=== PATIENT | male | born 1930 | race Caucasian/White ===

== ENCOUNTER 2017-11-06 10:55 | Emergency (ER) | payer MEDICAID, MEDICARE, OTHER ==
[2017-11-06 11:15] VITALS: BP 164/63; PULSE 53; RESP 16; TEMP 97; O2SAT 98
[2017-11-06] MEDS ORDERED: Sodium Chloride 0.9% 1,000 ML IV STA (11:23)
[2017-11-06 11:38] LABS: BASO % 0.6 % (0.0-2.0); EOS # 0.2 K/uL (0.0-0.7); EOS % 2.7 % (0.0-4.0); HEMOGLOBIN 13.1 g/dL (12.0-18.0); LYMPH # 2.1 K/uL (1.0-4.3); LYMPH % 35.3 % (20.0-40.0); MEAN CELL VOLUME 94.2 fl (80.0-94.0); MEAN CORPUSCULAR HEMOGLOBIN 31.7 pg (27.0-31.0); MEAN CORPUSCULAR HGB CONC 33.7 g/dL (33.0-37.0); MEAN PLATELET VOLUME 7.8 fl (7.2-11.7); MONO # 0.8 K/uL (0.0-0.8); NEUT # 2.9 K/uL (1.8-7.0); NEUT % 48.4 % (50.0-75.0); NRBC % 0.2 % (0.0-0.0); RBC 4.13 Mil/uL (4.40-5.90); RED CELL DISTRIBUTION WIDTH 13.3 % (11.5-14.5)
[2017-11-06 11:41] LABS: URINE BILIRUBIN NEGATIVE (NEGATIVE); URINE BLOOD NEGATIVE (NEGATIVE); URINE CLARITY CLEAR (Clear); URINE COLOR YELLOW (YELLOW); URINE GLUCOSE (UA) NEG (Normal); URINE LEUKOCYTE ESTERASE NEG Leu/uL (Negative); URINE NITRATE NEGATIVE (NEGATIVE); URINE PROTEIN NEGATIVE (NEGATIVE); URINE UROBILINOGEN 0.2-1.0 mg/dL (0.2-1.0)
[2017-11-06 11:46] LABS: ALB/GLOB RATIO 1.3 (1.0-2.1); ALBUMIN 4.1 g/dL (3.5-5.0); ALT/SGPT 37 U/L (21-72); AST/SGOT 24 U/L (17-59); BLOOD UREA NITROGEN 30 mg/dl (9-20); CALCIUM 9.4 mg/dL (8.4-10.2); GFR AFRICAN-AMERICAN > 60; GFR NON-AFRICAN AMERICAN 52
--- NOTE | 2017-11-06 12:42 | CT ---
PROCEDURE: CT Abdomen and Pelvis without Oral or IV contrast. HISTORY: flank pain/dysuria, hx of renal stone COMPARISON: CT abdomen and pelvis with oral and IV contrast performed 05/08/12 TECHNIQUE: Contiguous axial images of the abdomen and pelvis. No oral or IV contrast administered. Coronal and Sagittal reformats generated and reviewed. Radiation dose: Total exam DLP = 876.89 mGy-cm. This CT exam was performed using one or more of the following dose reduction techniques: Automated exposure control, adjustment of the mA and/or kV according to patient size, and/or use of iterative reconstruction technique. FINDINGS: There is limited evaluation of the solid organs without the administration of IV contrast. LOWER THORAX: No visible consolidation, pleural effusion, or pneumothorax. Dense coronary artery calcifications. LIVER: Unremarkable unenhanced appearance. GALLBLADDER AND BILE DUCTS: Cholelithiasis. PANCREAS: Unremarkable unenhanced appearance. SPLEEN: Unremarkable unenhanced appearance. ADRENALS: Unremarkable unenhanced appearance. KIDNEYS AND URETERS: No hydronephrosis or obstructing renal calculus. Punctate nonobstructing right renal calculus. Too small to characterize bilateral renal hypodensities. BLADDER: Thick-walled under distended urinary bladder. Punctate calcification within the urinary bladder; is unclear if this calcification resides within the bladder wall or represents a recently passed calculus. REPRODUCTIVE: The prostate gland measures approximately 6.0 x 6.4 cm. APPENDIX: The appendix appears within normal limits of caliber. No secondary signs of acute appendicitis. BOWEL: The stomach is nondistended. Lack of oral contrast limits evaluation for bowel pathology. The bowel loops appear within normal limits of caliber without evidence of intestinal obstruction. Diverticulosis without CT evidence of acute diverticulitis. PERITONEUM: No significant free fluid. No definite free air. LYMPH NODES: No bulky lymphadenopathy identified. VASCULATURE: No aortic aneurysm. Atherosclerotic calcifications. BONES: Degenerative changes. OTHER FINDINGS: Fat containing left inguinal hernia. Vessels and fluid within a right inguinal hernia. IMPRESSION: Cholelithiasis. Punctate calcification within the urinary bladder; is unclear if this calcification resides within the bladder wall or represents a recently passed calculus. Thick-walled urinary bladder may be exaggerated by under distension. Recommend correlation with urinalysis. Punctate nonobstructing right renal calculus. No hydronephrosis. Too small to characterize bilateral renal hypodensities. Markedly enlarged prostate gland. Recommend correlation with PSA. Diverticulosis without CT evidence acute diverticulitis. Fat containing left inguinal hernia. Vessels and fluid within a right inguinal hernia. Additional incidental findings as above.
--- NOTE | 2017-11-06 13:17 | ED PDOC ---
HPI: Back Time Seen by Provider: 11/06/17 11:24 Chief Complaint (Nursing): Back Pain Chief Complaint (Provider): back pain History Per: Patient Additional Complaint(s): 87yoM in ED for eval of back pain radiating down b/l LE since yesterday. Pt state he noted a stone pass yesterday with some bleeding. today, pt admist to continued pain , urinary frequency and urgency. Pt denies hemautira, nausea or vomiting. denies abd pain denies urethral drainage. Past Medical History Reviewed: Historical Data, Nursing Documentation, Vital Signs Vital Signs: Last Vital Signs Temp 97.0 F L 11/06/17 11:10 Pulse 53 L 11/06/17 11:10 Resp 16 11/06/17 11:10 BP 164/63 H 11/06/17 11:10 Pulse Ox 98 11/06/17 11:10 - Medical History PMH: Benign Prostatic Hyperplasia, CAD (angioplasty), Diabetes, HTN Denies: Chronic Kidney Disease - Family History Family History: States: Unknown Family Hx - Immunization History Hx Tetanus Toxoid Vaccination: Yes Hx Influenza Vaccination: Yes Hx Pneumococcal Vaccination: Yes - Home Medications Home Medications: Ambulatory Orders Medication Instructions Recorded Metformin HCl [Metformin] 1,000 mg PO BID 07/07/15 Metoprolol Succinate 50 mg PO DAILY 07/07/15 Aspirin [Ecotrin] 81 mg PO DAILY #0 tabec 11/07/15 Fenofibrate [Tricor] 0 mg PO DAILY #0 tab 11/07/15 Gabapentin [Neurontin] 100 mg PO HS #0 cap 11/07/15 Losartan [Cozaar] 50 mg PO DAILY #0 tab 11/07/15 Oxycodone HCl/Acetaminophen 1 tab PO Q4 #4 tab 11/07/15 [Percocet 5-325 mg Tablet] Naproxen [Naprosyn] 1 tab PO BID 11/06/17 SITagliptin [Januvia] 1 tab PO DAILY 11/06/17 Tramadol HCl [Ultram] 50 mg PO Q6 #15 tab 11/06/17 - Allergies Allergies/Adverse Reactions: Allergies Allergy/AdvReac Type Severity Reaction Status Date / Time No Known Allergies Allergy Verified 11/06/17 11:15 Review of Systems ROS Statement: Except As Marked, All Systems Reviewed And Found Negative Constitutional: Negative for: Fever, Chills Genitourinary Male: Positive for: Dysuria, Frequency. Negative for: Incontinence, Hematuria, Penile Discharge, Scrotal Pain Physical Exam - Reviewed Nursing Documentation Reviewed: Yes Vital Signs Reviewed: Yes - Physical Exam Appears: Positive for: Well, Non-toxic, No Acute Distress Head Exam: Positive for: NORMOCEPHALIC Skin: Positive for: Normal Color, Warm, DRY Cardiovascular/Chest: Positive for: Regular Rate, Rhythm Respiratory: Positive for: CNT, Normal Breath Sounds Gastrointestinal/Abdominal: Positive for: Normal Exam, Bowel Sounds, Soft. Negative for: Tenderness Back: Positive for: L CVA Tenderness, R CVA Tenderness Extremity: Positive for: Normal ROM Neurologic/Psych: Positive for: Alert, Oriented - Laboratory Results Result Diagrams: 11/06/17 11:32 11/06/17 11:32 - ECG O2 Sat by Pulse Oximetry: 98 - Progress ED Course And Treament: Orders Category Date Time Status ABD & PELVIS W/O PO OR IV CONT [CT] Stat CT 11/06/17 11:23 Completed COMP METABOLIC PANEL Stat Chem 11/06/17 11:32 Completed CBC (WITH DIFFERENTIAL) Stat CORRINE 11/06/17 11:32 Completed Ketorolac [Toradol] Med 11/06/17 11:32 Discontinued 15 mg .ROUTE .STK-MED ONE Ketorolac [Toradol] Med 11/06/17 11:19 Discontinued 15 mg IVP STAT STA Sodium Chloride 0.9% 1,000 ml Med 11/06/17 11:23 Discontinued IV 1,000 mls/hr URINALYSIS Stat URINALYSIS 11/06/17 11:24 Completed Re-evaluation Time: 13:18 Condition: Improved Medical Decision Making Medical Decision Making: PT feels much improved, will be d/c with dx of renal stone, diverticiolosis, cholelithaisis and enlarged prostate. Pt aware of enlarged prostate and gets PSA done rountinely Pt denies upper abd pain or diarrhea. will be d.c with flomax, ultram, cipro.f.u wiht pmd. Disposition - Clinical Impression Clinical Impression: Renal stone - Patient ED Disposition Is Patient to be Admitted: No Counseled Patient/Family Regarding: Studies Performed, Diagnosis, Need For Followup, Rx Given - Disposition Referrals: [facility] [Outside] Disposition: Routine/Home Disposition Time: 13:20 Condition: IMPROVED Prescriptions: Tramadol HCl [Ultram] 50 mg PO Q6 #15 tab Instructions: Kidney Stones (ED), Renal Colic (ED) Print Language: OCCITAN
== END 2017-11-06 13:40 | disposition home or self-care (01) ==
LOC: H.ER 10:55
DX: N20.0 Calculus of kidney (principal); E11.9 Type 2 diabetes mellitus without complications; I10 Essential (primary) hypertension; I25.10 Atherosclerotic heart disease of native coronary artery without angina pectoris; Z79.82 Long term (current) use of aspirin; N40.0 Benign prostatic hyperplasia without lower urinary tract symptoms; Z79.84 Long term (current) use of oral hypoglycemic drugs
CPT/HCPCS: 74176; 80053; 81003; 85025; 96374; 99283; J1885; J7040

== ENCOUNTER 2017-11-20 10:14 | Emergency (ER) | payer OTHER ==
[2017-11-20 10:33] VITALS: BP 165/73; PULSE 63; RESP 16; TEMP 97.9; O2SAT 98
[2017-11-20 11:49] LABS: BASO % 0.4 % (0.0-2.0); EOS # 0.2 K/uL (0.0-0.7); EOS % 2.9 % (0.0-4.0); HEMOGLOBIN 13.6 g/dL (12.0-18.0); LYMPH # 2.1 K/uL (1.0-4.3); MEAN CELL VOLUME 93.3 fl (80.0-94.0); MEAN CORPUSCULAR HEMOGLOBIN 31.7 pg (27.0-31.0); MEAN PLATELET VOLUME 7.9 fl (7.2-11.7); MONO # 0.8 K/uL (0.0-0.8); MONO % 12.6 % (0.0-10.0); NEUT % 49.1 % (50.0-75.0); NRBC % 0.1 % (0.0-0.0); RBC 4.29 Mil/uL (4.40-5.90); WHITE BLOOD COUNT 6.1 K/uL (4.8-10.8)
[2017-11-20 12:05] LABS: ALB/GLOB RATIO 1.2 (1.0-2.1); ALBUMIN 4.2 g/dL (3.5-5.0); ALT/SGPT 34 U/L (21-72); AST/SGOT 26 U/L (17-59); BLOOD UREA NITROGEN 20 mg/dl (9-20); GFR AFRICAN-AMERICAN > 60; GFR NON-AFRICAN AMERICAN > 60
--- NOTE | 2017-11-20 12:15 | ED PDOC ---
Lower Extremity Pain/Injury Time Seen by Provider: 11/20/17 11:05 Chief Complaint (Nursing): Lower Extremity Problem/Injury Chief Complaint (Provider): Lower extremity problem History Per: Patient, Family (daughter) History/Exam Limitations: no limitations Onset/Duration Of Symptoms: Days (weeks) Current Symptoms Are (Timing): Still Present Additional Complaint(s): Ian Aguero is an 87 year old male, with a past medical history of diabetes, prostate problems, and recent kidney stones, who was brought to the emergency department by daughter for generalized weakness and an episode of pre-syncope this morning where he fell to his knees. Patient reports ongoing low back pain and now feels generalized weakness on both lower extremities. Daughter states she saw an urologist at [facility] after kidney stone and had prostate evaluated but she is unaware of results. Patient does have soft stools but daughter attributes it to diabetes medication. Daughter also reports that he has been complaining of anxiety and depression, she has found him crying in bed. She denies weight loss, fever, vomiting, chest pain, shortness of breath or cough. No further medical complaints. PMD: Dr. Clark Past Medical History Reviewed: Historical Data, Nursing Documentation, Vital Signs Vital Signs: Last Vital Signs Temp 97.9 F 11/20/17 10:26 Pulse 63 11/20/17 10:26 Resp 16 11/20/17 10:26 BP 165/73 H 11/20/17 10:26 Pulse Ox 98 11/20/17 10:26 - Medical History PMH: Benign Prostatic Hyperplasia, CAD (angioplasty), Diabetes, HTN Denies: Chronic Kidney Disease - Surgical History Surgical History: No Surg Hx - Family History Family History: States: Unknown Family Hx - Living Arrangements Living Arrangements: With Family (daughter) - Social History Current smoker - smoking cessation education provided: No Alcohol: None Drugs: Denies - Immunization History Hx Tetanus Toxoid Vaccination: Yes Hx Influenza Vaccination: Yes Hx Pneumococcal Vaccination: Yes - Home Medications Home Medications: Ambulatory Orders Medication Instructions Recorded Metformin HCl [Metformin] 1,000 mg PO BID 07/07/15 Metoprolol Succinate 50 mg PO DAILY 07/07/15 Aspirin [Ecotrin] 81 mg PO DAILY #0 tabec 11/07/15 Fenofibrate [Tricor] 0 mg PO DAILY #0 tab 11/07/15 Gabapentin [Neurontin] 100 mg PO HS #0 cap 11/07/15 Losartan [Cozaar] 50 mg PO DAILY #0 tab 11/07/15 Oxycodone HCl/Acetaminophen 1 tab PO Q4 #4 tab 11/07/15 [Percocet 5-325 mg Tablet] Ketorolac Tromethamine [Toradol] 10 mg PO TID #20 cap 11/06/17 Naproxen [Naprosyn] 1 tab PO BID 11/06/17 SITagliptin [Januvia] 1 tab PO DAILY 11/06/17 Tamsulosin HCl [Flomax] 0.4 mg PO DAILY #14 cap.er.24h 11/06/17 ALPRAZolam HALF TABLET [Xanax HALF 0.125 mg PO HS PRN #4 tab 11/20/17 TABLET] Walker [Rolling Walker] 1 dev XX PRN PRN #1 dev 11/20/17 - Allergies Allergies/Adverse Reactions: Allergies Allergy/AdvReac Type Severity Reaction Status Date / Time No Known Allergies Allergy Verified 11/06/17 11:15 Review of Systems ROS Statement: Except As Marked, All Systems Reviewed And Found Negative Constitutional: Positive for: Weakness (generalized), Other (fatigue). Negative for: Fever, Weight loss Cardiovascular: Negative for: Chest Pain Respiratory: Negative for: Cough, Shortness of Breath Gastrointestinal: Negative for: Vomiting Musculoskeletal: Positive for: Back Pain Physical Exam - Reviewed Nursing Documentation Reviewed: Yes Vital Signs Reviewed: Yes - Physical Exam Appears: Negative for: Well (elderly appearing) Head Exam: Positive for: ATRAUMATIC, NORMAL INSPECTION, NORMOCEPHALIC Skin: Positive for: Normal Color, Warm, Dry Eye Exam: Positive for: Normal appearance, EOMI, PERRL Neck: Positive for: Normal, Painless ROM, Supple Cardiovascular/Chest: Positive for: Regular Rate, Rhythm. Negative for: Murmur Respiratory: Positive for: Normal Breath Sounds. Negative for: Respiratory Distress Gastrointestinal/Abdominal: Positive for: Normal Exam, Soft. Negative for: Tenderness, Guarding, Rebound Back: Positive for: Normal Inspection. Negative for: L CVA Tenderness, R CVA Tenderness Extremity: Positive for: Normal ROM, Other (4/5 strength bilateral lower extremities. 1+ patella reflex bilaterally). Negative for: Deformity, Swelling Neurologic/Psych: Positive for: Alert, Oriented (x3), Mood/Affect (flat) - Laboratory Results Result Diagrams: 11/20/17 11:42 11/20/17 11:42 - ECG ECG Rhythm: Positive for: Sinus Rhythm. Negative for: ST/T Changes Rate: 63 O2 Sat by Pulse Oximetry: 98 Medical Decision Making Medical Decision Making: Initial Impression: Initial Plan: --EKG --Comp Metabolic Panel --PSA [Prostate Specific Antigen] --CBC w/ differential --Chest portable [RAD] --Lumbar spine complete [RAD] --Urinalysis --reevaluation 12:05 --Blood work revealed only mild hyperglycemia. PSA sent and pending. --Waiting on crisis evaluation for impression of anxiety 12:41 Chest X-Ray FINDINGS: LUNGS: No active pulmonary disease. PLEURA: No significant pleural effusion identified. No pneumothorax apparent. CARDIOVASCULAR: Normal. OSSEOUS STRUCTURES: No significant abnormalities. VISUALIZED UPPER ABDOMEN: Normal. OTHER FINDINGS: None. IMPRESSION: No interval acute cardiopulmonary disease appreciated. 12:49 Lumbar Spine X-Ray FINDINGS: BONES: No apparent acute fracture or spondylolisthesis is identified. No destructive bony lesion is evident. Review body heights are stable. Intervertebral disc spaces are also within normal limits and incidental note is made of abdominal aortic atherosclerosis. Diffuse osteopenia suggests osteoporosis. Limited multilevel lumbar spondylosis identified. DISC SPACES: Normal. OTHER FINDINGS: None. IMPRESSION: Mild multilevel degenerative disease are changes are identified given apparent spondylosis, though limited, however, there is no interval fracture or spondylolisthesis identified. Further characterization can provided by MRI if clinically warranted. Crisis eval performed- daughter does not want pt admitted. Requesting xanax for anxiety at home, explained fall risk taking this medication , daughter aware and says the anxiety is disruptive and pt not sleeping, will Rx low dose #4pills and followup psych/PMD for further mgmt. B12 level added on, to followup as outpatient by PMD, not emergent condition. patient ambulating in ED, will Rx walker and may need outpt PT eval via PMD. Scribe Attestation: Documented by Bill Montano, acting as a scribe for Prasanna Galarza MD Provider Scribe Attestation: All medical record entries made by the Scribe were at my direction and personally dictated by me. I have reviewed the chart and agree that the record accurately reflects my personal performance of the history, physical exam, medical decision making, and the department course for this patient. I have also personally directed, reviewed, and agree with the discharge instructions and disposition. Disposition - Clinical Impression Clinical Impression: Anxiety, Generalized weakness, Back pain - Patient ED Disposition Is Patient to be Admitted: No - Disposition Disposition: Routine/Home Disposition Time: 13:30 Condition: STABLE Additional Instructions: See psychiatrist and primary doctor as directed. Use extreme caution taking xanax as it could cause drowsiness and falls. Return to ER for any worse or new symptoms Prescriptions: ALPRAZolam HALF TABLET [Xanax HALF TABLET] 0.125 mg PO HS PRN #4 tab PRN Reason: Anxiety Walker [Rolling Walker] 1 dev XX PRN PRN #1 dev PRN Reason: Other Instructions: Weakness (ED), Anxiety (ED) Forms: [employer] (Kinyarwanda) Print Language: MACEDONIAN
--- NOTE | 2017-11-20 12:43 | RAD ---
HISTORY: weakness COMPARISON: Chest radiographs 11/06/2015. TECHNIQUE: Chest PA and lateral FINDINGS: LUNGS: No active pulmonary disease. PLEURA: No significant pleural effusion identified. No pneumothorax apparent. CARDIOVASCULAR: Normal. OSSEOUS STRUCTURES: No significant abnormalities. VISUALIZED UPPER ABDOMEN: Normal. OTHER FINDINGS: None. IMPRESSION: No interval acute cardiopulmonary disease appreciated.
--- NOTE | 2017-11-20 12:50 | RAD ---
PROCEDURE: Radiographs of the Lumbar Spine. HISTORY: LE weakness back pain COMPARISON: Abdomen pelvis CT with contrast 05/08/2012 as well as unenhanced CT abdomen pelvis 11/06/2017. FINDINGS: BONES: No apparent acute fracture or spondylolisthesis is identified. No destructive bony lesion is evident. Review body heights are stable. Intervertebral disc spaces are also within normal limits and incidental note is made of abdominal aortic atherosclerosis. Diffuse osteopenia suggests osteoporosis. Limited multilevel lumbar spondylosis identified. DISC SPACES: Normal. OTHER FINDINGS: None. IMPRESSION: Mild multilevel degenerative disease are changes are identified given apparent spondylosis, though limited, however, there is no interval fracture or spondylolisthesis identified. Further characterization can provided by MRI if clinically warranted.
[2017-11-20 14:14] LABS: URINE BILIRUBIN NEGATIVE (NEGATIVE); URINE BLOOD NEGATIVE (NEGATIVE); URINE CLARITY SLIGHTY-CLOUDY (Clear); URINE COLOR YELLOW (YELLOW); URINE GLUCOSE (UA) >=500 mg/dL (Normal); URINE LEUKOCYTE ESTERASE NEG Leu/uL (Negative); URINE NITRATE NEGATIVE (NEGATIVE); URINE PROTEIN NEGATIVE (NEGATIVE); URINE UROBILINOGEN 0.2-1.0 mg/dL (0.2-1.0)
--- NOTE | 2017-11-20 16:43 | CARD ---
APPROVED REPORT EKG Measurement Heart [id number] <Conclusion> Normal sinus rhythm Normal ECG
== END 2017-11-20 13:50 | disposition home or self-care (01) ==
LOC: H.ER 10:14
DX: M62.81 Muscle weakness (generalized) (principal); F41.9 Anxiety disorder, unspecified; E11.65 Type 2 diabetes mellitus with hyperglycemia; I10 Essential (primary) hypertension; Z79.84 Long term (current) use of oral hypoglycemic drugs; I25.10 Atherosclerotic heart disease of native coronary artery without angina pectoris

== ENCOUNTER 2017-12-19 10:54 | Emergency (ER) | payer OTHER ==
[2017-12-19 11:00] VITALS: BP 167/78; PULSE 77; RESP 19; TEMP 97.9; O2SAT 96
--- NOTE | 2017-12-19 13:39 | ED PDOC ---
Lower Extremity Pain/Injury Time Seen by Provider: 12/19/17 12:00 Chief Complaint (Nursing): Back Pain Chief Complaint (Provider): b/l leg pain History Per: Patient History/Exam Limitations: no limitations Onset/Duration Of Symptoms: Days (x1 month) Current Symptoms Are (Timing): Still Present Additional Complaint(s): Ian Aguero is an 87 year old male, with a past medical history HTN, arthritis and diabetes, who presents to the emergency department complaining of a worsening b/l leg pain onset for x1 month. Patient states the pain goes from the thighs down the legs, worst in the knees. He was diagnosed with arthritis but has not seen any doctor regarding complaints. Patient does use cane and a walker at home. Patient is currently taking Naproxen. He denies any fever, back pain, numbness or weakness. No further medical complaints. PMD: None provided. Past Medical History Reviewed: Historical Data, Nursing Documentation, Vital Signs Vital Signs: Last Vital Signs Temp 97.9 F 12/19/17 10:57 Pulse 77 12/19/17 10:57 Resp 19 12/19/17 10:57 BP 167/78 H 12/19/17 10:57 Pulse Ox 96 12/19/17 10:57 - Medical History PMH: Arthritis, Benign Prostatic Hyperplasia, CAD (angioplasty), Diabetes, HTN Denies: Chronic Kidney Disease - Surgical History Surgical History: No Surg Hx - Family History Family History: States: Unknown Family Hx - Social History Current smoker - smoking cessation education provided: No Alcohol: None Drugs: Denies - Immunization History Hx Tetanus Toxoid Vaccination: Yes Hx Influenza Vaccination: Yes Hx Pneumococcal Vaccination: Yes - Home Medications Home Medications: Ambulatory Orders Medication Instructions Recorded Metformin HCl [Metformin] 1,000 mg PO BID 07/07/15 RX: Metoprolol Succinate 50 mg PO DAILY 07/07/15 Fenofibrate [Tricor] 0 mg PO DAILY #0 tab 11/07/15 Losartan [Cozaar] 50 mg PO DAILY #0 tab 11/07/15 RX: Aspirin [Ecotrin] 81 mg PO DAILY #0 tabec 11/07/15 RX: Gabapentin [Neurontin] 100 mg PO HS #0 cap 11/07/15 RX: Oxycodone HCl/Acetaminophen 1 tab PO Q4 #4 tab 11/07/15 [Percocet 5-325 mg Tablet] Ketorolac Tromethamine [Toradol] 10 mg PO TID #20 cap 11/06/17 RX: Naproxen [Naprosyn] 1 tab PO BID 11/06/17 SITagliptin [Januvia] 1 tab PO DAILY 11/06/17 Tamsulosin HCl [Flomax] 0.4 mg PO DAILY #14 cap.er.24h 11/06/17 ALPRAZolam HALF TABLET [Xanax HALF 0.125 mg PO HS PRN #4 tab 11/20/17 TABLET] RX: Walker [Rolling Walker] 1 dev XX PRN PRN #1 dev 11/20/17 RX: Naproxen 250 mg PO BID #20 tablet 12/19/17 oxyCODONE/Acetaminophen [Percocet 1 ea PO Q6 PRN #15 tab 12/19/17 5/325 mg Tab] - Allergies Allergies/Adverse Reactions: Allergies Allergy/AdvReac Type Severity Reaction Status Date / Time No Known Allergies Allergy Verified 12/19/17 10:57 Review of Systems ROS Statement: Except As Marked, All Systems Reviewed And Found Negative Constitutional: Negative for: Fever Musculoskeletal: Positive for: Leg Pain (b/l ). Negative for: Back Pain Neurological: Negative for: Weakness, Numbness Physical Exam - Reviewed Nursing Documentation Reviewed: Yes Vital Signs Reviewed: Yes - Physical Exam Appears: Positive for: Non-toxic Head Exam: Positive for: ATRAUMATIC, NORMAL INSPECTION, NORMOCEPHALIC Skin: Positive for: Normal Color, Warm, Dry Eye Exam: Positive for: Normal appearance Neck: Positive for: Painless ROM Extremity: Positive for: Normal ROM (b/l lower extremities). Negative for: Tenderness (b/l lower extremities), Pedal Edema, Deformity (b/l lower extremities), Swelling (b/l lower extremities) Neurologic/Psych: Positive for: Alert, Oriented, Gait (steady) - ECG O2 Sat by Pulse Oximetry: 96 (RA) Pulse Ox Interpretation: Normal Medical Decision Making Medical Decision Making: Initial Impression: differential includes arthritis. Initial Plan: --Will give prescription for Percocet and advised to follow up with PMD, and will give referral for orthopedist. Physical therapy referral done by PMD. Scribe Attestation: Documented by Bill Montano, acting as a scribe for Mariia Welch MD Provider Scribe Attestation: All medical record entries made by the Scribe were at my direction and personally dictated by me. I have reviewed the chart and agree that the record accurately reflects my personal performance of the history, physical exam, medical decision making, and the department course for this patient. I have also personally directed, reviewed, and agree with the discharge instructions and disposition. Disposition - Clinical Impression Clinical Impression: Arthralgia, Leg pain, bilateral - Disposition Referrals: Chacho Melo MD [Medical Doctor] - Condition: GOOD Additional Instructions: Follow up with your PCP in 2-3 days. Prescriptions: RX: Naproxen 250 mg PO BID #20 tablet oxyCODONE/Acetaminophen [Percocet 5/325 mg Tab] 1 ea PO Q6 PRN #15 tab PRN Reason: Pain, Severe (8-10) Instructions: Arthritis (ED)
== END 2017-12-19 14:08 | disposition home or self-care (01) ==
LOC: H.ER 10:54
DX: M79.606 Pain in leg, unspecified (principal); E11.9 Type 2 diabetes mellitus without complications; Z79.84 Long term (current) use of oral hypoglycemic drugs

== ENCOUNTER 2018-02-15 10:34 | Emergency (ER) | payer MEDICAID, OTHER ==
[2018-02-15 10:42] VITALS: BMI 26.6
[2018-02-15 11:44] LABS: BASO % 0.5 % (0.0-2.0); EOS # 0.1 K/uL (0.0-0.7); EOS % 2.3 % (0.0-4.0); HEMOGLOBIN 13.5 g/dL (12.0-18.0); LYMPH # 1.6 K/uL (1.0-4.3); LYMPH % 30.7 % (20.0-40.0); MEAN CELL VOLUME 94.4 fl (80.0-94.0); MEAN CORPUSCULAR HEMOGLOBIN 31.7 pg (27.0-31.0); MEAN CORPUSCULAR HGB CONC 33.6 g/dL (33.0-37.0); MEAN PLATELET VOLUME 8.1 fl (7.2-11.7); MONO # 0.7 K/uL (0.0-0.8); NEUT # 2.7 K/uL (1.8-7.0); NEUT % 53.5 % (50.0-75.0); NRBC % 0.1 % (0.0-0.0); RBC 4.24 Mil/uL (4.40-5.90); RED CELL DISTRIBUTION WIDTH 13.1 % (11.5-14.5); WHITE BLOOD COUNT 5.1 K/uL (4.8-10.8)
--- NOTE | 2018-02-15 11:57 | ED PDOC ---
HPI: Trauma/Fall - HPI Time Seen by Provider: 02/15/18 11:08 Chief Complaint (Nursing): Trauma Chief Complaint (Provider): fall, back pain History Per: Patient History/Exam Limitations: no limitations Injury Occurred (Timing): Days Ago: (1) Severity: Moderate Associated Symptoms: Dizziness Additional Complaint(s): 87yo male states he lost his balance yesterday afternoon, fell injuring his lower back. Was helped to his feet by family member, today back pain has worsened w some radiation to left leg. Also notes he hit his head. Takes aspirin daily. Denies vomiting, focal weakness, change vision/speech or sensation. Past Medical History Reviewed: Historical Data, Nursing Documentation, Vital Signs Vital Signs: Last Vital Signs Temp 97.6 F 02/15/18 10:41 Pulse 93 H 02/15/18 10:41 Resp 17 02/15/18 10:41 BP 164/75 H 02/15/18 10:41 Pulse Ox 97 02/15/18 10:41 - Medical History PMH: Arthritis, Benign Prostatic Hyperplasia, CAD (angioplasty), Diabetes, HTN Denies: Chronic Kidney Disease - Family History Family History: States: Unknown Family Hx - Living Arrangements Living Arrangements: With Family - Social History Current smoker - smoking cessation education provided: No - Immunization History Hx Tetanus Toxoid Vaccination: Yes Hx Influenza Vaccination: Yes Hx Pneumococcal Vaccination: Yes - Home Medications Home Medications: Ambulatory Orders Medication Instructions Recorded Metformin HCl [Metformin] 1,000 mg PO BID 07/07/15 Metoprolol Succinate 50 mg PO DAILY 07/07/15 Aspirin [Ecotrin] 81 mg PO DAILY #0 tabec 11/07/15 Fenofibrate [Tricor] 0 mg PO DAILY #0 tab 11/07/15 Gabapentin [Neurontin] 100 mg PO HS #0 cap 11/07/15 Losartan [Cozaar] 50 mg PO DAILY #0 tab 11/07/15 Oxycodone HCl/Acetaminophen 1 tab PO Q4 #4 tab 11/07/15 [Percocet 5-325 mg Tablet] Ketorolac Tromethamine [Toradol] 10 mg PO TID #20 cap 11/06/17 Naproxen [Naprosyn] 1 tab PO BID 11/06/17 SITagliptin [Januvia] 1 tab PO DAILY 11/06/17 Tamsulosin HCl [Flomax] 0.4 mg PO DAILY #14 cap.er.24h 11/06/17 ALPRAZolam HALF TABLET [Xanax HALF 0.125 mg PO HS PRN #4 tab 11/20/17 TABLET] Walker [Rolling Walker] 1 dev XX PRN PRN #1 dev 11/20/17 Naproxen 250 mg PO BID #20 tablet 12/19/17 oxyCODONE/Acetaminophen [Percocet 1 ea PO Q6 PRN #15 tab 12/19/17 5/325 mg Tab] Naproxen [Naprosyn] 500 mg PO BID PRN #14 tablet 02/15/18 - Allergies Allergies/Adverse Reactions: Allergies Allergy/AdvReac Type Severity Reaction Status Date / Time No Known Allergies Allergy Verified 12/19/17 10:57 Review of Systems Constitutional: Negative for: Fever, Chills Cardiovascular: Negative for: Chest Pain, Palpitations Respiratory: Negative for: Cough, Shortness of Breath Gastrointestinal: Negative for: Nausea, Abdominal Pain Genitourinary Male: Negative for: Dysuria Musculoskeletal: Positive for: Back Pain, Leg Pain. Negative for: Neck Pain, Arm Pain, Hand Pain, Foot Pain Skin: Negative for: Rash, Lesions, Jaundice Neurological: Positive for: Headache, Dizziness. Negative for: Weakness, Numbness, Incoordination, Change in Speech Physical Exam - Reviewed Nursing Documentation Reviewed: Yes Vital Signs Reviewed: Yes - Physical Exam Appears: Positive for: Well, Non-toxic, No Acute Distress Head Exam: Positive for: ATRAUMATIC, NORMAL INSPECTION, NORMOCEPHALIC Skin: Positive for: Normal Color, Warm, DRY Eye Exam: Positive for: EOMI, Normal appearance, PERRL ENT: Positive for: Normal ENT Inspection Neck: Positive for: Normal, Painless ROM Cardiovascular/Chest: Positive for: Regular Rate, Rhythm Respiratory: Positive for: CNT, Normal Breath Sounds Gastrointestinal/Abdominal: Positive for: Normal Exam, Soft Back: Positive for: Vertebral Tenderness, Decreased ROM (lower back), Muscle Spasm Extremity: Positive for: Normal ROM, Other (FROM hips b/l). Negative for: Deformity Neurologic/Psych: Positive for: Alert, Oriented - Laboratory Results Result Diagrams: 02/15/18 11:30 02/15/18 11:30 - ECG O2 Sat by Pulse Oximetry: 97 Medical Decision Making Medical Decision Making: workup for fall in elderly patient initiated labs, CT imaging of brain/CSpine/LSpine, pelvic XRay and pain medicine ordered XR and CT imaging performed r/o fracture Accession No. : [id number] Patient Name / ID : ESTEBAN SOLANO / [id number] Exam Date : 02/15/2018 13:08:46 ( Approved ) Study Comment : Sex / Age : M / 87Y Creator : Carl Hernandez MD Dictator : Carl Hernandez MD State Trooper : Campus Administrator : Carl Hernandez MD Approver2 : Report Date : 02/15/2018 14:26:56 My Comment : PROCEDURE: Radiographs of the pelvis. HISTORY: fall COMPARISON: None. FINDINGS: BONES: Pelvic Bones: Unremarkable. Hips: Degenerative changes which are moderate and symmetrical. JOINTS: Sacroiliac Joints: Unremarkable. Pubic Symphysis: Unremarkable. OTHER FINDINGS: None. IMPRESSION: No acute findings related to/accounting for the clinical presentation. Dictator : Samuel Ramirez MD State Trooper : Campus Administrator : Samuel Ramirez MD Approver2 : Report Date : 02/15/2018 14:11:34 My Comment : PROCEDURE: CT Lumbar Spine without contrast HISTORY: fall back pain COMPARISON: None. TECHNIQUE: Axial computed tomography images were obtained of the lumbar spine without the use of intravenous contrast. Coronal and sagittal reformatted images were created and reviewed. Radiation dose: Total exam DLP = 749.36 mGy-cm. This CT exam was performed using one or more of the following dose reduction techniques: Automated exposure control, adjustment of the mA and/or kV according to patient size, and/or use of iterative reconstruction technique. FINDINGS: VERTEBRAE: The vertebral bodies are maintained in height. Questionable old fracture of the right and left transverse process of L1, versus developmental anomaly. No surrounding soft tissue hemorrhage. Unlikely acute fractures. The remaining transverse processes and posterior elements are intact. . DISCS/SPINAL CANAL/NEURAL FORAMINA: L1-2: Disc space maintained in height. No disc bulge or herniation. No spinal or foraminal stenosis. L2-3: Disc space maintained in height. No bulge or herniation. No spinal or foraminal stenosis. L3-4: Diffuse disc bulge. Bilateral degenerative facet arthrosis with hypertrophy. Severe central spinal stenosis. Moderate bilateral neural foraminal stenosis. L4-5: Severe central spinal stenosis. Bilateral degenerative facet arthropathy. Diffuse disc bulge. Moderate bilateral neural foraminal stenosis. L5-S1: Diffuse disc bulge. No focal herniation. Severe left and moderate right neural foraminal stenosis. Moderate central spinal stenosis. PARASPINAL SOFT TISSUES: Unremarkable. OTHER FINDINGS: None. IMPRESSION: Possible old fractures of the right and left L1 transverse processes, versus developmental anomaly. No evidence of acute fracture. Multilevel disc bulge with severe spinal stenosis L3-4 and L4-5 and moderate spinal stenosis L5-S1. Multilevel moderate neural foraminal stenosis. Accession No. : [id number] Patient Name / ID : ESTEBAN SOLANO / [id number] Exam Date : 02/15/2018 11:44:14 ( Approved ) Study Comment : Sex / Age : M / 87Y Creator : Samuel Ramirez MD Dictator : Samuel Ramirez MD State Trooper : Campus Administrator : Samuel Ramirez MD Approver2 : Report Date : 02/15/2018 12:21:10 My Comment : PROCEDURE: CT HEAD WITHOUT CONTRAST. HISTORY: r/o ICH COMPARISON: 04/12/2012 TECHNIQUE: Axial computed tomography images were obtained through the head/brain without intravenous contrast. Radiation dose: Total exam DLP = 926.46 mGy-cm. This CT exam was performed using one or more of the following dose reduction techniques: Automated exposure control, adjustment of the mA and/or kV according to patient size, and/or use of iterative reconstruction technique. FINDINGS: HEMORRHAGE: No intracranial hemorrhage. BRAIN: No mass effect or edema. Mild diffuse age-appropriate cerebral atrophy. Mild periventricular chronic white matter ischemic change. No evidence of acute infarct. VENTRICLES: Unremarkable. No hydrocephalus. CALVARIUM: Unremarkable. PARANASAL SINUSES: Unremarkable as visualized. No significant inflammatory changes. MASTOID AIR CELLS: Unremarkable as visualized. No inflammatory changes. OTHER FINDINGS: None. IMPRESSION: No intracranial hemorrhage. Age related involutional changes. Otherwise unremarkable examination. Labs reviewed and unremarkable Pt improved in ED, DC w ibuprofen and followup PMD Disposition - Clinical Impression Clinical Impression: Back pain, Back contusion - Patient ED Disposition Is Patient to be Admitted: No - Disposition Referrals: [facility] [Outside] Disposition: Routine/Home Disposition Time: 16:30 Condition: STABLE Prescriptions: Naproxen [Naprosyn] 500 mg PO BID PRN #14 tablet PRN Reason: Pain, Moderate (4-7) Instructions: Low Back Pain in Adults, Preventing Falls in the Older Adult, Contusion (DC) Forms: [employer] (Djib[place]ian) Print Language: GERMAN - POA Present On Arrival: Falls Or Trauma
[2018-02-15 12:01] LABS: ALB/GLOB RATIO 1.3 (1.0-2.1); ALBUMIN 4.1 g/dL (3.5-5.0); ALT/SGPT 43 U/L (21-72); AST/SGOT 32 U/L (17-59); BLOOD UREA NITROGEN 26 mg/dl (9-20); CALCIUM 10.2 mg/dL (8.4-10.2); GFR AFRICAN-AMERICAN > 60; GFR NON-AFRICAN AMERICAN > 60
[2018-02-15 12:08] LABS: INR 0.9 (0.9-1.2); PARTIAL THROMBOPLASTIN TIME 28.4 Seconds (25.6-37.1); PROTHROMBIN TIME 9.7 Seconds (9.8-13.1)
--- NOTE | 2018-02-15 12:22 | CT ---
PROCEDURE: CT HEAD WITHOUT CONTRAST. HISTORY: r/o ICH COMPARISON: 04/12/2012 TECHNIQUE: Axial computed tomography images were obtained through the head/brain without intravenous contrast. Radiation dose: Total exam DLP = 926.46 mGy-cm. This CT exam was performed using one or more of the following dose reduction techniques: Automated exposure control, adjustment of the mA and/or kV according to patient size, and/or use of iterative reconstruction technique. FINDINGS: HEMORRHAGE: No intracranial hemorrhage. BRAIN: No mass effect or edema. Mild diffuse age-appropriate cerebral atrophy. Mild periventricular chronic white matter ischemic change. No evidence of acute infarct. VENTRICLES: Unremarkable. No hydrocephalus. CALVARIUM: Unremarkable. PARANASAL SINUSES: Unremarkable as visualized. No significant inflammatory changes. MASTOID AIR CELLS: Unremarkable as visualized. No inflammatory changes. OTHER FINDINGS: None. IMPRESSION: No intracranial hemorrhage. Age related involutional changes. Otherwise unremarkable examination.
--- NOTE | 2018-02-15 12:28 | CT ---
PROCEDURE: CT Cervical Spine without contrast HISTORY: Trauma COMPARISON: None available. TECHNIQUE: Axial computed tomography images were obtained of the cervical spine without the use of intravenous contrast. Coronal and sagittal reformatted images were created and reviewed. Radiation dose: Total exam DLP = 444.69 mGy-cm. This CT exam was performed using one or more of the following dose reduction techniques: Automated exposure control, adjustment of the mA and/or kV according to patient size, and/or use of iterative reconstruction technique. FINDINGS: VERTEBRAE: Vertebral bodies maintained in height. Normal vertebral alignment maintained. There is straightening of the normal lordotic curvature of the cervical spine indicating possible muscular spasm. The odontoid process and atlantoaxial articulation are intact. DISCS/SPINAL CANAL/NEURAL FORAMINA: There is narrowing of the C5-6 and C6-7 intervertebral disc spaces associated with osteophyte formation, consistent with degenerative disc disease. The remaining intervertebral disc spaces are maintained in height. Discs heights are grossly preserved. PARASPINAL SOFT TISSUES: Unremarkable. OTHER FINDINGS: None. IMPRESSION: No evidence of fracture or dislocation. Possible muscular spasm. 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
[2018-02-15 12:30] LABS: URINE BILIRUBIN NEGATIVE (NEGATIVE); URINE BLOOD NEGATIVE (NEGATIVE); URINE CLARITY CLEAR (Clear); URINE COLOR STRAW (YELLOW); URINE GLUCOSE (UA) >=500 mg/dL (Normal); URINE LEUKOCYTE ESTERASE NEG Leu/uL (Negative); URINE PROTEIN NEGATIVE (NEGATIVE); URINE UROBILINOGEN 0.2-1.0 mg/dL (0.2-1.0)
--- NOTE | 2018-02-15 14:13 | CT ---
PROCEDURE: CT Lumbar Spine without contrast HISTORY: fall back pain COMPARISON: None. TECHNIQUE: Axial computed tomography images were obtained of the lumbar spine without the use of intravenous contrast. Coronal and sagittal reformatted images were created and reviewed. Radiation dose: Total exam DLP = 749.36 mGy-cm. This CT exam was performed using one or more of the following dose reduction techniques: Automated exposure control, adjustment of the mA and/or kV according to patient size, and/or use of iterative reconstruction technique. FINDINGS: VERTEBRAE: The vertebral bodies are maintained in height. Questionable old fracture of the right and left transverse process of L1, versus developmental anomaly. No surrounding soft tissue hemorrhage. Unlikely acute fractures. The remaining transverse processes and posterior elements are intact. . DISCS/SPINAL CANAL/NEURAL FORAMINA: L1-2: Disc space maintained in height. No disc bulge or herniation. No spinal or foraminal stenosis. L2-3: Disc space maintained in height. No bulge or herniation. No spinal or foraminal stenosis. L3-4: Diffuse disc bulge. Bilateral degenerative facet arthrosis with hypertrophy. Severe central spinal stenosis. Moderate bilateral neural foraminal stenosis. L4-5: Severe central spinal stenosis. Bilateral degenerative facet arthropathy. Diffuse disc bulge. Moderate bilateral neural foraminal stenosis. L5-S1: Diffuse disc bulge. No focal herniation. Severe left and moderate right neural foraminal stenosis. Moderate central spinal stenosis. PARASPINAL SOFT TISSUES: Unremarkable. OTHER FINDINGS: None. IMPRESSION: Possible old fractures of the right and left L1 transverse processes, versus developmental anomaly. No evidence of acute fracture. Multilevel disc bulge with severe spinal stenosis L3-4 and L4-5 and moderate spinal stenosis L5-S1. Multilevel moderate neural foraminal stenosis.
--- NOTE | 2018-02-15 14:28 | RAD ---
PROCEDURE: Radiographs of the pelvis. HISTORY: fall COMPARISON: None. FINDINGS: BONES: Pelvic Bones: Unremarkable. Hips: Degenerative changes which are moderate and symmetrical. JOINTS: Sacroiliac Joints: Unremarkable. Pubic Symphysis: Unremarkable. OTHER FINDINGS: None. IMPRESSION: No acute findings related to/accounting for the clinical presentation.
--- NOTE | 2018-02-15 15:09 | CARD ---
APPROVED REPORT EKG Measurement Heart [id number] <Conclusion> Normal sinus rhythm Nonspecific T wave abnormality Abnormal ECG
[2018-02-15 16:33] VITALS: BP 152/72; PULSE 68; RESP 16; TEMP 97.7
[2018-02-26 21:30] VITALS: O2SAT 97
== END 2018-02-15 16:35 | disposition home or self-care (01) ==
LOC: H.ER 10:34
DX: M54.5 Low back pain (principal); E11.9 Type 2 diabetes mellitus without complications; I10 Essential (primary) hypertension; I25.10 Atherosclerotic heart disease of native coronary artery without angina pectoris; M48.061 Spinal stenosis, lumbar region without neurogenic claudication; M51.26 Other intervertebral disc displacement, lumbar region; N40.0 Benign prostatic hyperplasia without lower urinary tract symptoms; Z79.82 Long term (current) use of aspirin; Z79.84 Long term (current) use of oral hypoglycemic drugs
CPT/HCPCS: 70450; 72125; 72131; 72170; 80053; 81003; 82948; 84484; 85025; 85610; 85730; 93005; 96374; 99285; J1885

== ENCOUNTER 2018-05-01 07:02 | Inpatient (IN) | payer OTHER ==
[2018-05-01 07:03] VITALS: BMI 26.6
--- NOTE | 2018-05-01 08:09 | ED PDOC ---
HPI: Back Time Seen by Provider: 05/01/18 07:20 Chief Complaint (Nursing): Back Pain Chief Complaint (Provider): Back pain History Per: Patient History/Exam Limitations: no limitations Onset/Duration Of Symptoms: Other (months) Current Symptoms Are (Timing): Still Present Quality Of Discomfort: "Pain" Associated Symptoms: None Additional Complaint(s): 87 year old male presents to the ED complaining of back pain onset for months. Patient states he is taking Motrin and Tramadol for the pain. He was seen by Dr. Pablo and advised to visit the ED. Patient denies numbness, weakness, fever, urinary problems or any other complaints. PMD: Jayson Ordoñez Past Medical History Reviewed: Historical Data, Nursing Documentation, Vital Signs Vital Signs: Last Vital Signs Temp 97.9 F 05/01/18 07:17 Pulse 62 05/01/18 07:17 Resp 20 05/01/18 07:17 BP 148/74 05/01/18 07:17 Pulse Ox 97 05/01/18 07:17 - Medical History PMH: Arthritis, Benign Prostatic Hyperplasia, CAD (angioplasty), Diabetes, HTN Denies: Chronic Kidney Disease - Surgical History Other surgeries: angioplasty - Family History Family History: States: Unknown Family Hx - Social History Current smoker - smoking cessation education provided: No Alcohol: None Drugs: Denies - Immunization History Hx Tetanus Toxoid Vaccination: Yes Hx Influenza Vaccination: Yes Hx Pneumococcal Vaccination: Yes - Home Medications Home Medications: Ambulatory Orders Medication Instructions Recorded Metformin HCl [Metformin] 1,000 mg PO BID 07/07/15 Metoprolol Succinate 50 mg PO DAILY 07/07/15 Aspirin [Ecotrin] 81 mg PO DAILY #0 tabec 11/07/15 Fenofibrate [Tricor] 0 mg PO DAILY #0 tab 11/07/15 Gabapentin [Neurontin] 100 mg PO HS #0 cap 11/07/15 Losartan [Cozaar] 50 mg PO DAILY #0 tab 11/07/15 Oxycodone HCl/Acetaminophen 1 tab PO Q4 #4 tab 11/07/15 [Percocet 5-325 mg Tablet] Ketorolac Tromethamine [Toradol] 10 mg PO TID #20 cap 11/06/17 Naproxen [Naprosyn] 1 tab PO BID 11/06/17 SITagliptin [Januvia] 1 tab PO DAILY 11/06/17 Tamsulosin HCl [Flomax] 0.4 mg PO DAILY #14 cap.er.24h 11/06/17 ALPRAZolam HALF TABLET [Xanax HALF 0.125 mg PO HS PRN #4 tab 11/20/17 TABLET] Walker [Rolling Walker] 1 dev XX PRN PRN #1 dev 11/20/17 Naproxen 250 mg PO BID #20 tablet 12/19/17 oxyCODONE/Acetaminophen [Percocet 1 ea PO Q6 PRN #15 tab 12/19/17 5/325 mg Tab] Naproxen [Naprosyn] 500 mg PO BID PRN #14 tablet 02/15/18 - Allergies Allergies/Adverse Reactions: Allergies Allergy/AdvReac Type Severity Reaction Status Date / Time No Known Allergies Allergy Verified 05/01/18 07:17 Review of Systems ROS Statement: Except As Marked, All Systems Reviewed And Found Negative Constitutional: Negative for: Fever Musculoskeletal: Positive for: Back Pain Neurological: Negative for: Weakness, Numbness Physical Exam - Reviewed Nursing Documentation Reviewed: Yes Vital Signs Reviewed: Yes - Physical Exam Appears: Positive for: Non-toxic, No Acute Distress Head Exam: Positive for: ATRAUMATIC, NORMAL INSPECTION, NORMOCEPHALIC Skin: Positive for: Normal Color, Warm, Dry Eye Exam: Positive for: EOMI, Normal appearance, PERRL ENT: Positive for: Normal ENT Inspection Neck: Positive for: Normal, Painless ROM, Supple. Negative for: Decreased ROM Cardiovascular/Chest: Positive for: Regular Rate, Rhythm. Negative for: Murmur Respiratory: Positive for: Normal Breath Sounds. Negative for: Decreased Breath Sounds, Accessory Muscle Use, Respiratory Distress Gastrointestinal/Abdominal: Positive for: Normal Exam, Bowel Sounds, Soft. Negative for: Tenderness, Guarding, Rebound Back: Positive for: Other (tenderness to palpation on lower back) Extremity: Positive for: Normal ROM. Negative for: Tenderness, Pedal Edema, Deformity Neurologic/Psych: Positive for: Alert, Oriented (x3). Negative for: Motor/ Sensory Deficits - Laboratory Results Result Diagrams: 05/02/18 05:40 05/02/18 05:40 - ECG O2 Sat by Pulse Oximetry: 97 (RA) Pulse Ox Interpretation: Normal Medical Decision Making Medical Decision Making: Time: 08 Initial Impression: acute on chronic back pain Initial Plan: --PTT --Prothrombin Time [COAG] --Type and Screen --Reevaluation Consult with Dr. Pablo Time: [address] Ordoñez regarding the patient. Scribe Attestation: Documented by David Hollis, acting as a scribe for Mariia Welch MD Provider Scribe Attestation: All medical record entries made by the Scribe were at my direction and personally dictated by me. I have reviewed the chart and agree that the record accurately reflects my personal performance of the history, physical exam, medical decision making, and the department course for this patient. I have also personally directed, reviewed, and agree with the discharge instructions and disposition. Disposition - Clinical Impression Clinical Impression: Back pain - Patient ED Disposition Is Patient to be Admitted: Yes Discussed With DrGiancarlo: Jayson Ordoñez Counseled Patient/Family Regarding: Studies Performed, Diagnosis - Disposition Disposition Time: 08:00 Condition: FAIR - Pt Status Changed To: Hospital Disposition Of: Inpatient - Admit Certification Admit to Inpatient:: After my assessment, the patient will require hospitalization for at least two midnights. This is because of the severity of symptoms shown, intensity of services needed, and/or the medical risk in this patient being treated as an outpatient. - POA Present On Arrival: None
[2018-05-01 08:58] LABS: INR 0.9 (0.9-1.2); PARTIAL THROMBOPLASTIN TIME 28.2 Seconds (25.6-37.1); PROTHROMBIN TIME 9.9 Seconds (9.8-13.1)
[2018-05-01] MEDS ORDERED: Oxycodone/Acetaminophen 5/325 mg Tab PO SCH (17:00)
--- NOTE | 2018-05-01 17:28 | CP.PCM.HP ---
<Marcela Foster - Last Filed: 05/01/18 17:16> History of Present Illness - History of Present Illness History of Present Illness: Patient seen and examined at bedside with Dr. Ordoñez 87 yr old M presented to ED with complaint of worsening acute on chronic back pain since 2016 after a fall down a flight of stairs. Denies urinary or fecal incontinence, fevers, chills, dysuria or hematuria. Pain is mildly alleviated by Ibuprofen and Tramadol. Since 2016 patient has had multiple falls due to imbalance. Most recent imaging Lumbar spine CT showed muti-level disc bulge with severe spinal stenosis L3-L4 abd L4-L5, moderate stenosis L5-S1, also multi -level moderate neural foraminal stenosis. PMHx includes HTN, NIDDM type 2 and CAD (angioplasty 15 yrs ago), chronic low back pain s/p multiple falls. PMD: Dr. Ordoñez PMHx: HTN, NIDDM type 2 and CAD (angioplasty 15 yrs ago), chronic low back pain s/p multiple falls. SurgHx: angioplasty 15 yrs ago FMHx: sister had CABG SocHx: denies tobacco/Etoh or drugs Medications: see medication reconciliation Allergies: NKDA ED course: vital signs stable -PT/PTT wnl -type and screen ordered Present on Admission - Present on Admission Any Indicators Present on Admission: No History of DVT/PE: No History of Uncontrolled Diabetes: No Urinary Catheter: No Decubitus Ulcer Present: No History Surgical Site Infection Following: None Review of Systems - Constitutional Constitutional: absent: Chills - EENT Eyes: absent: Change in Vision Nose/Mouth/Throat: absent: Sore Throat - Cardiovascular Cardiovascular: absent: Chest Pain, Dyspnea, Pedal Edema - Respiratory Respiratory: absent: Cough, Dyspnea, Hemoptysis - Gastrointestinal Gastrointestinal: absent: Diarrhea, Nausea, Vomiting - Genitourinary Genitourinary: absent: Difficulty Urinating, Dysuria - Musculoskeletal Musculoskeletal: Back Pain. absent: Numbness, Tingling - Integumentary Integumentary: absent: Wounds - Neurological Neurological: absent: Weakness - Psychiatric Psychiatric: absent: Anxiety - Endocrine Endocrine: absent: Polydipsia, Polyphagia, Polyuria - Hematologic/Lymphatic Hematologic: absent: Easy Bleeding, Easy Bruising Past Patient History - Infectious Disease Hx of Infectious Diseases: None - Past Medical History & Family History Past Medical History?: Yes - Past Social History Alcohol: None Drugs: Denies - CARDIAC Hx Cardiac Disorders: Yes - PULMONARY Hx Respiratory Disorders: No - NEUROLOGICAL Hx Neurological Disorder: No - HEENT Hx HEENT Problems: No - RENAL Hx Chronic Kidney Disease: No - ENDOCRINE/METABOLIC Hx Endocrine Disorders: Yes Hx Diabetes Mellitus Type 2: Yes - HEMATOLOGICAL/ONCOLOGICAL Hx Blood Disorders: No - INTEGUMENTARY Hx Dermatological Problems: No - MUSCULOSKELETAL/RHEUMATOLOGICAL Hx Arthritis: Yes - GASTROINTESTINAL Hx Gastrointestinal Disorders: No - GENITOURINARY/GYNECOLOGICAL Hx Genitourinary Disorders: Yes - PSYCHIATRIC Hx Psychophysiologic Disorder: No Hx Substance Use: No - SURGICAL HISTORY Hx Surgeries: Yes Hx Angioplasty: Yes - ANESTHESIA Hx Anesthesia: Yes Hx Anesthesia Reactions: No Meds Allergies/Adverse Reactions: Allergies Allergy/AdvReac Type Severity Reaction Status Date / Time No Known Allergies Allergy Verified 05/01/18 07:17 Physical Exam - Constitutional Appears: No Acute Distress - Head Exam Head Exam: ATRAUMATIC, NORMOCEPHALIC - Eye Exam Eye Exam: EOMI, PERRL - ENT Exam ENT Exam: Mucous Membranes Moist - Respiratory Exam Respiratory Exam: Clear to Auscultation Bilateral, NORMAL BREATHING PATTERN - Cardiovascular Exam Cardiovascular Exam: REGULAR RHYTHM, +S1, +S2 - GI/Abdominal Exam GI & Abdominal Exam: Normal Bowel Sounds, Soft. absent: Tenderness - Extremities Exam Extremities exam: Positive for: full ROM, pedal pulses present. Negative for: calf tenderness, pedal edema, tenderness - Back Exam Back exam: tenderness (over lumbar spine) - Neurological Exam Neurological exam: Alert, CN II-XII Intact (grossly intact), Oriented x3 - Psychiatric Exam Psychiatric exam: Normal Affect, Normal Mood - Skin Skin Exam: Dry, Warm Results - Vital Signs Recent Vital Signs: Last Vital Signs Temp 98.2 F 05/01/18 16:14 Pulse 61 05/01/18 16:14 Resp 20 05/01/18 16:14 BP 168/84 H 05/01/18 16:14 Pulse Ox 95 05/01/18 16:14 - Labs Labs: Laboratory Results - last 24 hr 05/01/18 05/01/18 05/01/18 08:09 08:28 08:28 PT 9.9 INR 0.9 APTT 28.2 POC Glucose (mg/dL) 161 H Blood Type O POSITIVE Blood Type Confirm Antibody Screen Negative BBK History Checked No verified bt 05/01/18 05/01/18 12:17 15:33 PT INR APTT POC Glucose (mg/dL) 169 H Blood Type Blood Type Confirm O POSITIVE Antibody Screen BBK History Checked Assessment & Plan - Assessment and Plan (Free Text) Assessment: 87 yr old M admitted for severe acute on chronic low back pain with recent Lumbar spine CT findings of muti-level disc bulge with severe spinal stenosis L3 -L4 abd L4-L5, moderate stenosis L5-S1, also multi-level moderate neural foraminal stenosis. Patient is stable for possible neurosurgical procedure. Plan: -admit to med/surg -EKG, CBC, CXR, coags all normal (see physical chart) -Neurosurgery on consult: Dr. Pablo, will follow recommendations -resume home medications -NPO after midnight - Date & Time Date: 05/01/18 Time: 10:30 <Jayson Ordoñez - Last Filed: 05/02/18 07:29> Results - Vital Signs Recent Vital Signs: Last Vital Signs Temp 97.5 F L 05/02/18 05:50 Pulse 65 05/02/18 05:50 Resp 20 05/02/18 05:50 BP 154/79 H 05/02/18 05:50 Pulse Ox 94 L 05/02/18 05:50 - Labs Result Diagrams: 05/02/18 05:40 05/02/18 05:40 Labs: Laboratory Results - last 24 hr 05/01/18 05/01/18 05/01/18 08:09 08:28 08:28 WBC RBC Hgb Hct MCV MCH MCHC RDW Plt Count PT 9.9 INR 0.9 APTT 28.2 Sodium Potassium Chloride Carbon Dioxide Anion Gap BUN Creatinine Est GFR ( Amer) Est GFR (Non-Af Amer) POC Glucose (mg/dL) 161 H Random Glucose Calcium Total Bilirubin AST ALT Alkaline Phosphatase Total Protein Albumin Globulin Albumin/Globulin Ratio Blood Type O POSITIVE Blood Type Confirm Antibody Screen Negative BBK History Checked No verified bt 05/01/18 05/01/18 05/01/18 12:17 15:33 21:01 WBC RBC Hgb Hct MCV MCH MCHC RDW Plt Count PT INR APTT Sodium Potassium Chloride Carbon Dioxide Anion Gap BUN Creatinine Est GFR ( Amer) Est GFR (Non-Af Amer) POC Glucose (mg/dL) 169 H 124 H Random Glucose Calcium Total Bilirubin AST ALT Alkaline Phosphatase Total Protein Albumin Globulin Albumin/Globulin Ratio Blood Type Blood Type Confirm O POSITIVE Antibody Screen BBK History Checked 05/02/18 05/02/18 05/02/18 05:26 05:40 05:40 WBC 6.3 RBC 4.60 Hgb 14.4 Hct 42.8 MCV 93.0 MCH 31.4 H MCHC 33.7 RDW 12.8 Plt Count 182 PT INR APTT Sodium 141 Potassium 4.5 Chloride 101 Carbon Dioxide 25 Anion Gap 20 BUN 20 Creatinine 1.0 Est GFR ( Amer) > 60 Est GFR (Non-Af Amer) > 60 POC Glucose (mg/dL) 115 H Random Glucose 125 H Calcium 9.3 Total Bilirubin 1.4 H AST 31 ALT 43 Alkaline Phosphatase 63 Total Protein 7.8 Albumin 4.3 Globulin 3.4 Albumin/Globulin Ratio 1.3 Blood Type Blood Type Confirm Antibody Screen BBK History Checked Assessment & Plan - Assessment and Plan (Free Text) Plan: I was present during evaluation and discussed with Dr Foster re plans of care and mgt Patient is medically stable for surgery. Jayson Ordoñez M.D.
[2018-05-01] MEDS: Insulin Regular 100 units/ml SC SCH ×3 (17:39→21:10)
[2018-05-02] MEDS: Metoprolol Succinate 50 mg XL Tab PO SCH ×2 (05:49→13:27)
[2018-05-02] MEDS ORDERED: Dextrose 5%/Lactated Ringer's 1,000 ML IV SCH (06:00)
[2018-05-02 06:19] LABS: HEMOGLOBIN 14.4 g/dL (12.0-18.0); MEAN CORPUSCULAR HEMOGLOBIN 31.4 pg (27.0-31.0); MEAN CORPUSCULAR HGB CONC 33.7 g/dL (33.0-37.0); RBC 4.6 Mil/uL (4.40-5.90); RED CELL DISTRIBUTION WIDTH 12.8 % (11.5-14.5); WHITE BLOOD COUNT 6.3 K/uL (4.8-10.8)
[2018-05-02] MEDS: Insulin Regular 100 units/ml SC SCH ×4 (06:38→22:00)
[2018-05-02 06:52] LABS: ALB/GLOB RATIO 1.3 (1.0-2.1); ALBUMIN 4.3 g/dL (3.5-5.0); ALT/SGPT 43 U/L (21-72); AST/SGOT 31 U/L (17-59); BLOOD UREA NITROGEN 20 mg/dl (9-20); CALCIUM 9.3 mg/dL (8.4-10.2); GFR AFRICAN-AMERICAN > 60; GFR NON-AFRICAN AMERICAN > 60
[2018-05-02] MEDS ORDERED: Propofol 10 mg/ml Inj (20 ML) ONE (07:03)
[2018-05-02] MEDS ORDERED: ePHEDrine 50 mg/ml Inj ONE (07:04)
[2018-05-02] MEDS ORDERED: Succinylcholine 200 mg/10 ml Inj IV ONE ×2 (07:04→07:08)
[2018-05-02] MEDS ORDERED: Rocuronium 10 mg/ml (5 ml) ONE (07:04)
[2018-05-02] MEDS ORDERED: Etomidate 20 mg/10ml Inj IV ONE (07:05)
--- NOTE | 2018-05-02 07:09 | CP.PCM.CON ---
History of Present Illness - History of Present Illness History of Present Illness: Patient is an 87 y/o male with PMH of HTN, NIDDM and CAD presents with severe lower back pain. The patient has a history of a fall in 2016 injuring his lower back and has multiple falls secondary to imbalance thereafter. He ambulates with the use of a walker as a result. Over the last 2-3 months the pain has progressively worsened, hindering him from performing his usual activities such a walking, climbing stairs and sleeping. The pain has been resistant to pain medications and exercises. He admits to radiation of pain to his right thigh but denies numbness and tingling to BLE. He also denies bowel/ bladder incontinence and saddle paresthesias. He denies CP/SOB/N/V/D/fever/ dysuria/melena. Review of Systems - Review of Systems All systems: reviewed and no additional remarkable complaints except Review of Systems: as per HPI Past Patient History - Infectious Disease Hx of Infectious Diseases: None - Past Medical History & Family History Past Medical History?: Yes Past Family History: Reviewed and not pertinent - Past Social History Smoking Status: Never Smoked Alcohol: None Drugs: Denies - CARDIAC Hx Cardiac Disorders: Yes - PULMONARY Hx Respiratory Disorders: No - NEUROLOGICAL Hx Neurological Disorder: No - HEENT Hx HEENT Problems: No - RENAL Hx Chronic Kidney Disease: No - ENDOCRINE/METABOLIC Hx Endocrine Disorders: Yes Hx Diabetes Mellitus Type 2: Yes - HEMATOLOGICAL/ONCOLOGICAL Hx Blood Disorders: No - INTEGUMENTARY Hx Dermatological Problems: No - MUSCULOSKELETAL/RHEUMATOLOGICAL Hx Arthritis: Yes - GASTROINTESTINAL Hx Gastrointestinal Disorders: No - GENITOURINARY/GYNECOLOGICAL Hx Genitourinary Disorders: Yes - PSYCHIATRIC Hx Psychophysiologic Disorder: No Hx Substance Use: No - SURGICAL HISTORY Hx Surgeries: Yes Hx Angioplasty: Yes - ANESTHESIA Hx Anesthesia: Yes Hx Anesthesia Reactions: No Meds Allergies/Adverse Reactions: Allergies Allergy/AdvReac Type Severity Reaction Status Date / Time No Known Allergies Allergy Verified 05/01/18 07:17 - Medications Medications: Current Medications Alprazolam (Xanax) 0.125 mg PO HS PRN PRN Reason: Anxiety Stop: 05/08/18 14:45 Gabapentin (Neurontin) 100 mg PO HS [facility] Last Admin: 05/01/18 21:10 Dose: 100 mg Dextrose/Lactated Ringer's (Dextrose 5%/Lactated Ringer's) 1,000 mls @ 80 mls/ hr IV .[id number] [facility] Stop: 05/02/18 19:56 Last Admin: 05/02/18 05:46 Dose: 80 mls/hr Insulin Human Regular (Humulin R) 0 units SC ACHS [facility] PRN Reason: Protocol Last Admin: 05/02/18 06:38 Dose: Not Given Losartan Potassium (Cozaar) 50 mg PO DAILY [facility] Metformin HCl (Glucophage) 1,000 mg PO BIDWM [facility] Last Admin: 05/01/18 17:38 Dose: 1,000 mg Metoprolol Succinate (Toprol Xl) 50 mg PO DAILY [facility] Last Admin: 05/02/18 05:49 Dose: 50 mg Oxycodone/Acetaminophen (Percocet 5/325 Mg Tab) 1 tab PO Q6 PRN PRN Reason: Pain, severe (8-10) Stop: 05/04/18 16:01 Sitagliptin Phosphate (Januvia) 100 mg PO DAILY [facility] Tamsulosin HCl (Flomax) 0.4 mg PO DAILY [facility] Physical Exam - Constitutional Appears: Well, No Acute Distress - Head Exam Head Exam: ATRAUMATIC - Eye Exam Eye Exam: EOMI, Normal appearance, PERRL - ENT Exam ENT Exam: Mucous Membranes Moist, Normal Exam - Respiratory Exam Respiratory Exam: Clear to Auscultation Bilateral, NORMAL BREATHING PATTERN - Cardiovascular Exam Cardiovascular Exam: REGULAR RHYTHM - GI/Abdominal Exam GI & Abdominal Exam: Normal Bowel Sounds, Soft - Back Exam Additional comments: Right lumbar paraspinal tenderness + R SLR diminished sensation SP/DP/TN RLE compared to LLE motor intact EHL/FHL/TA/G BLE distal pulses intact B/L - Neurological Exam Neurological exam: Alert, CN II-XII Intact, Oriented x3, Reflexes Normal - Psychiatric Exam Psychiatric exam: Normal Affect, Normal Mood - Skin Skin Exam: Normal Color, Warm Results - Vital Signs Recent Vital Signs: Last Vital Signs Temp 97.5 F L 05/02/18 05:50 Pulse 65 05/02/18 05:50 Resp 20 05/02/18 05:50 BP 154/79 H 05/02/18 05:50 Pulse Ox 94 L 05/02/18 05:50 - Labs Result Diagrams: 05/02/18 05:40 05/02/18 05:40 Labs: Laboratory Results - last 24 hr 05/01/18 05/01/18 05/01/18 08:09 08:28 08:28 WBC RBC Hgb Hct MCV MCH MCHC RDW Plt Count PT 9.9 INR 0.9 APTT 28.2 Sodium Potassium Chloride Carbon Dioxide Anion Gap BUN Creatinine Est GFR ( Amer) Est GFR (Non-Af Amer) POC Glucose (mg/dL) 161 H Random Glucose Calcium Total Bilirubin AST ALT Alkaline Phosphatase Total Protein Albumin Globulin Albumin/Globulin Ratio Blood Type O POSITIVE Blood Type Confirm Antibody Screen Negative BBK History Checked No verified bt 05/01/18 05/01/18 05/01/18 12:17 15:33 21:01 WBC RBC Hgb Hct MCV MCH MCHC RDW Plt Count PT INR APTT Sodium Potassium Chloride Carbon Dioxide Anion Gap BUN Creatinine Est GFR ( Amer) Est GFR (Non-Af Amer) POC Glucose (mg/dL) 169 H 124 H Random Glucose Calcium Total Bilirubin AST ALT Alkaline Phosphatase Total Protein Albumin Globulin Albumin/Globulin Ratio Blood Type Blood Type Confirm O POSITIVE Antibody Screen BBK History Checked 05/02/18 05/02/18 05/02/18 05:26 05:40 05:40 WBC 6.3 RBC 4.60 Hgb 14.4 Hct 42.8 MCV 93.0 MCH 31.4 H MCHC 33.7 RDW 12.8 Plt Count 182 PT INR APTT Sodium 141 Potassium 4.5 Chloride 101 Carbon Dioxide 25 Anion Gap 20 BUN 20 Creatinine 1.0 Est GFR ( Amer) > 60 Est GFR (Non-Af Amer) > 60 POC Glucose (mg/dL) 115 H Random Glucose 125 H Calcium 9.3 Total Bilirubin 1.4 H AST 31 ALT 43 Alkaline Phosphatase 63 Total Protein 7.8 Albumin 4.3 Globulin 3.4 Albumin/Globulin Ratio 1.3 Blood Type Blood Type Confirm Antibody Screen BBK History Checked Assessment & Plan (1) Lumbar spondylosis Assessment and Plan: Dr. Pablo proposes a Right lumbar laminotomy at level L4-L5, possible L3-4 in OR today Risks/benefits of the procedure were explained in detail. Patient expresses understanding and agrees to proceed with above procedure. NPO above d/w Dr. Pablo in agreement Status: Acute - Date & Time Date: 05/02/18 Time: 07:09
[2018-05-02] MEDS ORDERED: GELATIN SPONGE,ABSORB/PORCINE 1 EACH SPONGE TP ONE (07:21)
[2018-05-02] MEDS ORDERED: Thrombin Topical 5,000 Int Units Spray Kit ONE (07:21)
[2018-05-02] MEDS ORDERED: Bupivacaine HCl 0.5% PF (10 ml) Inj ONE (07:21)
[2018-05-02] MEDS ORDERED: Lactated Ringer's 1,000 ML IV ONE ×2 (07:33→07:45)
[2018-05-02] MEDS ORDERED: ceFAZolin IV 1 gm in Dextrose 1 GM/50 ML BAG IVPB ONE (07:33)
[2018-05-02] MEDS ORDERED: Lidocaine 2% w Epi 1:100,000 Inj IJ ONE ×2 (07:50)
[2018-05-02] MEDS ORDERED: HEMOSTATIC MATRIX 10 ML DIS.NEEDLE TOP ONE (08:22)
[2018-05-02] MEDS ORDERED: Neostigmine 1:1000 (1 mg/ml) Inj ONE (08:25)
[2018-05-02] MEDS ORDERED: Absorbable Gelatin Sponge Size 100 TP ONE (08:30)
[2018-05-02] MEDS ORDERED: Thrombin Topical 5,000 Int Units Spray Kit TOP ONE (08:30)
[2018-05-02] MEDS ORDERED: Bupivacaine HCl 0.5% PF (10 ml) Inj IJ ONE ×2 (08:35→08:55)
[2018-05-02] MEDS ORDERED: Oxycodone/Acetaminophen 5/325 mg Tab PO PRN (09:21)
[2018-05-02] MEDS ORDERED: Sodium Chloride 0.9% 1,000 ML IV SCH (09:30)
--- NOTE | 2018-05-02 09:31 | PCM.SURG1 ---
Surgeon's Initial Post Op Note - Surgeon's Notes Surgeon: Akil Pablo MD [employer] Manager: Yrn Bergman PA-C Type of Anesthesia: General Endo Anesthesia Administered By: Rupali Mancilla MD Pre-Operative Diagnosis: Right L4-5 Lumbar spondylosis Operative Findings: Right L3-4 and L4-5 spondylosis and disc herniation Post-Operative Diagnosis: as above Operation Performed: Right L3-4, L4-5 laminotomy and posterior fusion Specimen/Specimens Removed: none Estimated Blood Loss: EBL {In ML}: 50 Blood Products Given: N/A Drains Used: Rory Corona (x1 right) Post-Op Condition: Good Date of Surgery/Procedure: 05/02/18 Time of Surgery/Procedure: 07:50
--- NOTE | 2018-05-02 10:10 | RAD ---
PROCEDURE: Intraoperative Fluoroscopy. HISTORY: LUMBAR LAMINECTOMY FINDINGS: Fluoroscopic assistance was provided. Fluoroscopy time = 3.5 seconds. Radiation dose = 1.95 mGy. Please refer to the operative report for additional details.
[2018-05-02] MEDS: ceFAZolin IV 2 gm in Dextrose 2 GM/50 ML BAG IVPB SCH (16:17)
--- NOTE | 2018-05-02 20:03 | OP ---
PROCEDURE DATE: 05/02/2018 PREOPERATIVE DIAGNOSES: Lumbar spondylosis and instability. POSTOPERATIVE DIAGNOSES: Lumbar spondylosis and instability. PROCEDURES: Right L4-L5 and L3-L4 hemilaminotomy, medial facetectomy, decompression, L3 to L5 posterolateral fusion, fluoroscopy has been used. SURGEON: Akil Pablo MD [employer] OPERATOR: Yrn Bergman, physician anesthesia assistant who helped me perform the surgery stayed throughout the case. DESCRIPTION OF PROCEDURE: The patient was brought to the operating room, anesthetized with general endotracheal anesthesia, placed in a prone position on the Rory table. Care was taken to protect all pressure points. Back of the lumbar area thoroughly prepped and draped in sterile manner after marking a skin incision for lumbar laminectomy. After prepping and draping the area, the skin has been incised. Bleeding skin has been controlled with bipolar finisher operator. After using a Bovie finisher operator, paraspinal muscles have been detached from the attachments of spinous process and lamina of L3-L4 and L4-L5 the right side. Fluoroscopy has been confirmed at this level. Dianne retractor has been applied to alter the facet joint of L4-L5. Under magnification, by using a high speed drill, the lamina of L4-L5, medial part of the L4-L5 have been drilled. Drilling is continued until top and bottom of the ligament seen. Drilling is also continued on the medial part of the facets until the turn of ligament has been seen. Once this has been done, thinned out the lamina, medial part of the facets, and ligamentum flavum has been removed and foraminotomy was performed. Similarly, L3-L4 hemilaminotomy, medial facetectomy, including the removal of the ligamentum flavum after thinning of the bone decompressing this area and foraminotomy is performed, and the patient has been noted to have microinstability in these two areas with open joint. Hence, the lateral aspect of the facet joint and transverse process have been decorticated, demineralized bone placed in the area achieving a posterolateral fusion. Hemostasis thus achieved. Rory drain placed in the wound, brought out through a separate stab neck skin incision. Muscles and fascia were closed with 1 Vicryl, subcutaneous tissue with 3 Vicryl, skin has been stitches. The patient tolerated the procedures. After procedure, mobilized to the recovery room in stabilized condition. Akil Pablo MD [facility] # [id number]
[2018-05-02] MEDS: Oxycodone/Acetaminophen 5/325 mg Tab PO PRN (23:01)
[2018-05-03] MEDS: Lactated Ringer's 1,000 ML IV SCH (00:33)
[2018-05-03] MEDS: ceFAZolin IV 2 gm in Dextrose 2 GM/50 ML BAG IVPB SCH ×3 (00:34→16:13)
[2018-05-03 06:25] LABS: HEMOGLOBIN 13.8 g/dL (12.0-18.0); MEAN CELL VOLUME 92.8 fl (80.0-94.0); MEAN CORPUSCULAR HEMOGLOBIN 31.8 pg (27.0-31.0); MEAN CORPUSCULAR HGB CONC 34.3 g/dL (33.0-37.0); RBC 4.34 Mil/uL (4.40-5.90); RED CELL DISTRIBUTION WIDTH 13.1 % (11.5-14.5); WHITE BLOOD COUNT 9.6 K/uL (4.8-10.8)
[2018-05-03 06:58] LABS: CALCIUM 9.2 mg/dL (8.4-10.2)
--- NOTE | 2018-05-03 08:18 | CP.PCM.PN ---
Subjective - Date & Time of Evaluation Date of Evaluation: 05/03/18 Time of Evaluation: 08:00 - Subjective Subjective: Patient seen and examined at bedside comfortable. Pain well controlled. No acute events overnight. Objective - Vital Signs/Intake and Output Vital Signs (last 24 hours): Temp Pulse Resp BP Pulse Ox 98.1 F 71 19 144/81 95 05/03/18 07:44 05/03/18 07:44 05/03/18 07:44 05/03/18 07:44 05/03/18 07:44 - Medications Medications: Current Medications Acetaminophen (Tylenol 325mg Tab) 650 mg PO Q4 PRN PRN Reason: Fever 101 degrees fahrenheit Alprazolam (Xanax) 0.125 mg PO HS PRN PRN Reason: Anxiety Stop: 05/08/18 14:45 Last Admin: 05/03/18 00:32 Dose: 0.125 mg Docusate Sodium (Colace) 100 mg PO BID [facility] Last Admin: 05/02/18 16:20 Dose: 100 mg Gabapentin (Neurontin) 100 mg PO HS [facility] Last Admin: 05/02/18 21:52 Dose: 100 mg Cefazolin Sodium/Dextrose (Ancef Iv 2 Gm Duplex) 2 gm in 50 mls @ 50 mls/hr IVPB Q8 [facility] PRN Reason: Protocol Stop: 05/03/18 17:59 Last Admin: 05/03/18 00:34 Dose: 50 mls/hr Sodium Chloride (Sodium Chloride 0.9%) 1,000 mls @ 100 mls/hr IV .Q10H [facility] Stop: 05/03/18 09:25 Last Admin: 05/02/18 11:30 Dose: 0 mls Lactated Ringer's (Lactated Ringer's) 1,000 mls @ 125 mls/hr IV .Q8H [facility] Last Admin: 05/03/18 00:33 Dose: 125 mls/hr Insulin Human Regular (Humulin R) 0 units SC ACHS [facility] PRN Reason: Protocol Last Admin: 05/02/18 22:00 Dose: Not Given Losartan Potassium (Cozaar) 50 mg PO DAILY [facility] Last Admin: 05/02/18 13:25 Dose: 50 mg Metformin HCl (Glucophage) 1,000 mg PO BIDWM [facility] Last Admin: 05/02/18 16:18 Dose: 1,000 mg Metoprolol Succinate (Toprol Xl) 50 mg PO DAILY [facility] Last Admin: 05/02/18 13:27 Dose: 50 mg Morphine Sulfate (Morphine) 2 mg IVP Q4 PRN PRN Reason: Pain, severe (8-10) Last Admin: 05/03/18 03:39 Dose: 2 mg Ondansetron HCl (Zofran Inj) 4 mg IVP ONCE PRN PRN Reason: Nausea/Vomiting Last Admin: 05/02/18 13:08 Dose: 4 mg Ondansetron HCl (Zofran Inj) 4 mg IVP Q6 PRN PRN Reason: Nausea/Vomiting Oxycodone/Acetaminophen (Percocet 5/325 Mg Tab) 1 tab PO Q6 PRN PRN Reason: Pain, severe (8-10) Stop: 05/04/18 16:01 Last Admin: 05/02/18 23:01 Dose: 1 tab Oxycodone/Acetaminophen (Percocet 5/325 Mg Tab) 2 tab PO Q4 PRN PRN Reason: Pain, severe (8-10) Stop: 05/05/18 09:22 Sitagliptin Phosphate (Januvia) 100 mg PO DAILY [facility] Last Admin: 05/02/18 13:27 Dose: 100 mg Tamsulosin HCl (Flomax) 0.4 mg PO DAILY [facility] Last Admin: 05/02/18 13:26 Dose: 0.4 mg - Labs Labs: 05/03/18 05:30 05/03/18 05:30 PT 9.9 Seconds (9.8-13.1) 05/01/18 08:28 INR 0.9 (0.9-1.2) 05/01/18 08:28 APTT 28.2 Seconds (25.6-37.1) 05/01/18 08:28 - Back Exam Additional comments: Lumbar: Dressings with mild bloody drainage from Drain site, otherwise intact [place] drain with mild bloody drainage (120cc total output postop) sensation improved SP/DP/TN motor intact EHL/FHL/TA/G pedal pulses intact comps soft/NT Assessment and Plan (1) Lumbar spondylosis Assessment & Plan: POD#1 s/p L3-L5 laminotomy and posterior fusion -monitor drain output until tomorrow, may remove tomorrow AM -PT/OT WBAT -ABD binder -neurosurgically stable -discharge planning -above d/w Dr. Pablo in agreement Status: Acute
[2018-05-03] MEDS: Metoprolol Succinate 50 mg XL Tab PO SCH (10:15)
[2018-05-03] MEDS: Insulin Regular 100 units/ml SC SCH ×4 (10:16→22:14)
[2018-05-03] MEDS: GlipiZIDE 5 mg SR Tab PO SCH (12:53)
[2018-05-03] MEDS: Oxycodone/Acetaminophen 5/325 mg Tab PO PRN (13:01)
--- NOTE | 2018-05-03 16:31 | CP.PCM.CON ---
History of Present Illness - History of Present Illness History of Present Illness: Patient is a 87 year old male admitted for surgical repair of back injury. The patient underwent successful surgery. He denies chest pain. Blood pressure is controlled. Review of Systems - Constitutional Constitutional: absent: As Per HPI, Anorexia, Chills, Daytime Sleepiness, Excessive Sweating, Fatigue, Fever, Frequent Falls, Headache, Increased Appetite , Lethargy, Malaise, Night Sweats, Snoring, Sleep Apnea, Weight Gain, Weight Loss, Weakness, Other - EENT Eyes: absent: As Per HPI, Blind Spots, Blurred Vision, Change in Vision, Decreased Night Vision, Diplopia, Discharge, Dry Eye, Exophthalmos, Floaters, Irritation, Itchy Eyes, Loss of Peripheral Vision, Pain, Photophobia, Requires Corrective Lenses, Sees Flashes, Spots in Vision, Tunnel Vision, Other Visual Disturbances, Loss of Vision, Other Ears: absent: As Per HPI, Decreased Hearing, Ear Discharge, Ear Pain, Tinnitus, Abnormal Hearing, Disequilibrium, Dizziness, Other Nose/Mouth/Throat: absent: As Per HPI, Epistaxis, Nasal Congestion, Nasal Discharge, Nasal Obstruction, Nasal Trauma, Nose Pain, Post Nasal Drip, Sinus Pain, Sinus Pressure, Bleeding Gums, Change in Voice, Dental Pain, Dry Mouth, Dysphagia, Halitosis, Hoarsness, Lip Swelling, Mouth Lesions, Mouth Pain, Odynophagia, Sore Throat, Throat Swelling, Tongue Swelling, Facial Pain, Neck Pain, Neck Mass, Other - Cardiovascular Cardiovascular: absent: As Per HPI, Acrocyanosis, Chest Pain, Chest Pain at Rest , Chest Pain with Activity, Claudication, Diaphoresis, Dyspnea, Dyspnea on Exertion, Edema, Irregular Heart Rhythm, Pain Radiating to Arm/Neck/Jaw, Leg Edema, Leg Ulcers, Lightheadedness, Orthopnea, Palpitations, Paroxysmal Nocturnal Dyspnea, Pedal Edema, Radiating Pain, Rapid Heart Rate, Slow Heart Rate, Syncope, Other - Respiratory Respiratory: absent: As Per HPI, Cough, Dyspnea, Hemoptysis, Dyspnea on Exertion , Wheezing, Snoring, Stridor, Pain on Inspiration, Chest Congestion, Excessive Mucous Production, Change in Mucous Color, Pain with Coughing, Other - Gastrointestinal Gastrointestinal: absent: As Per HPI, Abdominal Pain, Belching, Bloating, Change in Bowel Habits, Change in Stool Character, Coffee Ground Emesis, Constipation, Cramping, Diarrhea, Dyspepsia, Dysphagia, Early Satiety, Excessive Flatus, Fecal Incontinence, Heartburn, Hematemesis, Hematochezia, Loose Stools, Melena, Nausea, Odynophagia, Temesmus, Vomiting, Other - Musculoskeletal Musculoskeletal: absent: As Per HPI, Abnormal Gait, Arthralgias, Atrophy, Back Pain, Deformity, Joint Swelling, Limited Range of Motion, Loss of Height, Muscle Cramps, Muscle Weakness, Myalgias, Neck Pain, Numbness, Radiating Pain into Limb, Stiffness, Tingling, Other - Integumentary Integumentary: absent: As Per HPI, Acne, Alopecia, Bleeding Lesions, Change in Hair, Change in Nails, Change in Pigmentation, Changing Lesions, Dry Skin, Erythema, Furuncle, Hirsutism, Lesions, New Lesions, Non-Healing Lesions, Photosensitivity, Pruritus, Rash, Skin Pain, Skin Ulcer, Sores, Striae, Swelling , Unusual Bruising, Wounds, Jaundice, Other - Neurological Neurological: absent: As Per HPI, Abnormal Gait, Abnormal Hearing, Abnormal Movements, Abnormal Speech, Behavioral Changes, Burning Sensations, Confusion, Convulsions, Disequilibrium, Dizziness, Numbness, Focal Weakness, Frequent Falls , Headaches, Lack of Coordination, Loss of Vision, Memory Loss, Paresthesias, Radicular Pain, Restless Legs, Sensory Deficit, Syncope, Tingling, Tremor, Vertigo, Weakness, Other Visual Disturbances, Other - Psychiatric Psychiatric: absent: As Per HPI, Abnormal Sleep Pattern, Anhedonia, Anxiety, Auditory Hallucinations, Behavioral Changes, Change in Appetite, Change in Libido, Confusion, Depression, Difficulty Concentrating, Hallucinations, Homicidal Ideation, Hopelessness, Irritability, Memory Loss, Mood Swings, Panic Attacks, Paranoia, Suicidal Ideation, Visual Hallucinations, Tactile Hallucinations, Other - Endocrine Endocrine: absent: As Per HPI, Change in Body Appearance, Change in Libido, Cold Intolorance, Deepening of Voice, Excessive Sweating, Fatigue, Flushing, Heat Intolorance, Increase in Ring/Shoe/Hat Size, Palpitations, Polydipsia, Polyphagia, Polyuria, Other - Hematologic/Lymphatic Hematologic: absent: As Per HPI, Easy Bleeding, Easy Bruising, Lymphadenopathy, Other Past Patient History - Infectious Disease Hx of Infectious Diseases: None - Past Medical History & Family History Past Medical History?: Yes Past Family History: Reviewed and not pertinent - Past Social History Smoking Status: Never Smoked Alcohol: None Drugs: Denies - CARDIAC Hx Cardiac Disorders: Yes - PULMONARY Hx Respiratory Disorders: No - NEUROLOGICAL Hx Neurological Disorder: No - HEENT Hx HEENT Problems: No - RENAL Hx Chronic Kidney Disease: No - ENDOCRINE/METABOLIC Hx Endocrine Disorders: Yes Hx Diabetes Mellitus Type 2: Yes - HEMATOLOGICAL/ONCOLOGICAL Hx Blood Disorders: No - INTEGUMENTARY Hx Dermatological Problems: No - MUSCULOSKELETAL/RHEUMATOLOGICAL Hx Arthritis: Yes - GASTROINTESTINAL Hx Gastrointestinal Disorders: No - GENITOURINARY/GYNECOLOGICAL Hx Genitourinary Disorders: Yes - PSYCHIATRIC Hx Psychophysiologic Disorder: No Hx Substance Use: No - SURGICAL HISTORY Hx Surgeries: Yes Hx Angioplasty: Yes - ANESTHESIA Hx Anesthesia: Yes Hx Anesthesia Reactions: No Meds Allergies/Adverse Reactions: Allergies Allergy/AdvReac Type Severity Reaction Status Date / Time No Known Allergies Allergy Verified 05/01/18 07:17 - Medications Medications: Current Medications Acetaminophen (Tylenol 325mg Tab) 650 mg PO Q4 PRN PRN Reason: Fever 101 degrees fahrenheit Alprazolam (Xanax) 0.125 mg PO HS PRN PRN Reason: Anxiety Stop: 05/08/18 14:45 Last Admin: 05/03/18 00:32 Dose: 0.125 mg Docusate Sodium (Colace) 100 mg PO BID [facility] Last Admin: 05/03/18 16:12 Dose: 100 mg Gabapentin (Neurontin) 100 mg PO HS [facility] Last Admin: 05/02/18 21:52 Dose: 100 mg Glipizide (Glucotrol Xl) 5 mg PO BRK [facility] Last Admin: 05/03/18 12:53 Dose: 5 mg Cefazolin Sodium/Dextrose (Ancef Iv 2 Gm Duplex) 2 gm in 50 mls @ 50 mls/hr IVPB Q8 [facility] PRN Reason: Protocol Stop: 05/03/18 17:59 Last Admin: 05/03/18 16:13 Dose: 50 mls/hr Lactated Ringer's (Lactated Ringer's) 1,000 mls @ 125 mls/hr IV .Q8H [facility] Last Admin: 05/03/18 00:33 Dose: 125 mls/hr Insulin Human Regular (Humulin R) 0 units SC ACHS [facility] PRN Reason: Protocol Last Admin: 05/03/18 16:13 Dose: 1 unit Losartan Potassium (Cozaar) 50 mg PO DAILY [facility] Last Admin: 05/03/18 10:13 Dose: 50 mg Metformin HCl (Glucophage) 500 mg PO BIDWM [facility] Last Admin: 05/03/18 16:12 Dose: 500 mg Metoprolol Succinate (Toprol Xl) 50 mg PO DAILY [facility] Last Admin: 05/03/18 10:15 Dose: 50 mg Morphine Sulfate (Morphine) 2 mg IVP Q4 PRN PRN Reason: Pain, severe (8-10) Last Admin: 05/03/18 03:39 Dose: 2 mg Ondansetron HCl (Zofran Inj) 4 mg IVP ONCE PRN PRN Reason: Nausea/Vomiting Last Admin: 05/02/18 13:08 Dose: 4 mg Ondansetron HCl (Zofran Inj) 4 mg IVP Q6 PRN PRN Reason: Nausea/Vomiting Oxycodone/Acetaminophen (Percocet 5/325 Mg Tab) 1 tab PO Q6 PRN PRN Reason: Pain, severe (8-10) Stop: 05/04/18 16:01 Last Admin: 05/03/18 13:01 Dose: 1 tab Oxycodone/Acetaminophen (Percocet 5/325 Mg Tab) 2 tab PO Q4 PRN PRN Reason: Pain, severe (8-10) Stop: 05/05/18 09:22 Sitagliptin Phosphate (Januvia) 100 mg PO DAILY [facility] Last Admin: 05/03/18 10:15 Dose: 100 mg Tamsulosin HCl (Flomax) 0.4 mg PO DAILY [facility] Last Admin: 05/03/18 10:14 Dose: 0.4 mg Physical Exam - Constitutional Appears: Non-toxic - Head Exam Head Exam: NORMAL INSPECTION - Eye Exam Eye Exam: Normal appearance - ENT Exam ENT Exam: Mucous Membranes Moist - Neck Exam Neck exam: Positive for: Full Rom - Respiratory Exam Respiratory Exam: NORMAL BREATHING PATTERN - Cardiovascular Exam Cardiovascular Exam: REGULAR RHYTHM - GI/Abdominal Exam GI & Abdominal Exam: Normal Bowel Sounds - Rectal Exam Rectal Exam: Deferred - Extremities Exam Extremities exam: Positive for: normal inspection - Back Exam Back exam: NORMAL INSPECTION - Neurological Exam Neurological exam: Alert, Oriented x3 - Psychiatric Exam Psychiatric exam: Normal Affect - Skin Skin Exam: Normal Color Results - Vital Signs Recent Vital Signs: Last Vital Signs Temp 98.3 F 05/03/18 16:05 Pulse 80 05/03/18 16:05 Resp 20 05/03/18 16:05 BP 99/62 L 05/03/18 16:05 Pulse Ox 94 L 05/03/18 16:05 - Labs Result Diagrams: 05/03/18 05:30 05/03/18 05:30 Labs: Laboratory Results - last 24 hr 05/02/18 05/03/18 05/03/18 21:09 05:00 05:30 WBC 9.6 D RBC 4.34 L Hgb 13.8 Hct 40.3 MCV 92.8 MCH 31.8 H MCHC 34.3 RDW 13.1 Plt Count 169 Sodium Potassium Chloride Carbon Dioxide Anion Gap BUN Creatinine Est GFR ( Amer) Est GFR (Non-Af Amer) POC Glucose (mg/dL) 187 H 154 H Random Glucose Calcium 05/03/18 05/03/18 05/03/18 05:30 10:44 15:26 WBC RBC Hgb Hct MCV MCH MCHC RDW Plt Count Sodium 138 Potassium 4.5 Chloride 98 Carbon Dioxide 25 Anion Gap 20 BUN 22 H Creatinine 1.4 Est GFR ( Amer) 58 Est GFR (Non-Af Amer) 48 POC Glucose (mg/dL) 211 H 190 H Random Glucose 182 H Calcium 9.2 - EKG Data EKG Interpreted by: Myself Assessment & Plan (1) HTN (hypertension) Assessment and Plan: blood pressure management Status: Acute Priority: Medium (2) Hyperglycemia Assessment and Plan: manage conservatively Status: Acute
--- NOTE | 2018-05-03 17:33 | CP.PCM.PN ---
Subjective - Date & Time of Evaluation Date of Evaluation: 05/02/18 Time of Evaluation: 12:00 - Subjective Subjective: Patient seen and examined in recovery with Dr. Ordoñez. Awake, alert, POD# 0 s/p lumbar laminectomy L3-4 and L4-5 right. Patient reports pain is controlled with medication. Denies SOB, dizziness or chest pain. Objective - Vital Signs/Intake and Output Vital Signs (last 24 hours): Temp Pulse Resp BP Pulse Ox 98.3 F 80 20 99/62 L 94 L 05/03/18 16:05 05/03/18 16:05 05/03/18 16:05 05/03/18 16:05 05/03/18 16:05 - Medications Medications: Current Medications Acetaminophen (Tylenol 325mg Tab) 650 mg PO Q4 PRN PRN Reason: Fever 101 degrees fahrenheit Alprazolam (Xanax) 0.125 mg PO HS PRN PRN Reason: Anxiety Stop: 05/08/18 14:45 Last Admin: 05/03/18 00:32 Dose: 0.125 mg Docusate Sodium (Colace) 100 mg PO BID [facility] Last Admin: 05/03/18 16:12 Dose: 100 mg Gabapentin (Neurontin) 100 mg PO HS [facility] Last Admin: 05/02/18 21:52 Dose: 100 mg Glipizide (Glucotrol Xl) 5 mg PO BRK [facility] Last Admin: 05/03/18 12:53 Dose: 5 mg Lactated Ringer's (Lactated Ringer's) 1,000 mls @ 125 mls/hr IV .Q8H [facility] Last Admin: 05/03/18 00:33 Dose: 125 mls/hr Insulin Human Regular (Humulin R) 0 units SC ACHS [facility] PRN Reason: Protocol Last Admin: 05/03/18 16:13 Dose: 1 unit Losartan Potassium (Cozaar) 50 mg PO DAILY [facility] Last Admin: 05/03/18 10:13 Dose: 50 mg Metformin HCl (Glucophage) 500 mg PO BIDWM [facility] Last Admin: 05/03/18 16:12 Dose: 500 mg Metoprolol Succinate (Toprol Xl) 50 mg PO DAILY [facility] Last Admin: 05/03/18 10:15 Dose: 50 mg Morphine Sulfate (Morphine) 2 mg IVP Q4 PRN PRN Reason: Pain, severe (8-10) Last Admin: 05/03/18 03:39 Dose: 2 mg Ondansetron HCl (Zofran Inj) 4 mg IVP ONCE PRN PRN Reason: Nausea/Vomiting Last Admin: 05/02/18 13:08 Dose: 4 mg Ondansetron HCl (Zofran Inj) 4 mg IVP Q6 PRN PRN Reason: Nausea/Vomiting Oxycodone/Acetaminophen (Percocet 5/325 Mg Tab) 1 tab PO Q6 PRN PRN Reason: Pain, severe (8-10) Stop: 05/04/18 16:01 Last Admin: 05/03/18 13:01 Dose: 1 tab Oxycodone/Acetaminophen (Percocet 5/325 Mg Tab) 2 tab PO Q4 PRN PRN Reason: Pain, severe (8-10) Stop: 05/05/18 09:22 Sitagliptin Phosphate (Januvia) 100 mg PO DAILY [facility] Last Admin: 05/03/18 10:15 Dose: 100 mg Tamsulosin HCl (Flomax) 0.4 mg PO DAILY [facility] Last Admin: 05/03/18 10:14 Dose: 0.4 mg - Labs Labs: 05/03/18 05:30 05/03/18 05:30 PT 9.9 Seconds (9.8-13.1) 05/01/18 08:28 INR 0.9 (0.9-1.2) 05/01/18 08:28 APTT 28.2 Seconds (25.6-37.1) 05/01/18 08:28 - Constitutional Appears: No Acute Distress - Head Exam Head Exam: NORMAL INSPECTION - Eye Exam Eye Exam: EOMI - ENT Exam ENT Exam: Mucous Membranes Moist - Respiratory Exam Respiratory Exam: NORMAL BREATHING PATTERN - Cardiovascular Exam Cardiovascular Exam: REGULAR RHYTHM - GI/Abdominal Exam GI & Abdominal Exam: Normal Bowel Sounds - Extremities Exam Extremities Exam: absent: Calf Tenderness, Pedal Edema - Back Exam Additional comments: right [place] drain in place with minimal sero-sangunous fluid - Neurological Exam Neurological Exam: Alert, Awake - Psychiatric Exam Psychiatric exam: Normal Affect, Normal Mood - Skin Skin Exam: Dry, Warm Assessment and Plan - Assessment and Plan (Free Text) Assessment: 87 yr old M POD# 0 s/p lumbar laminectomy L3-4 and L4-5 right with right [place] drain in place. Patient tolerated procedure well. Plan: -pain management -Neurosurgery on consult: Dr. Pablo, will follow recommendations -continue home medications -liquid diet this evening and advance diet as tolerated
--- NOTE | 2018-05-03 17:33 | CP.PCM.PN ---
Subjective - Date & Time of Evaluation Date of Evaluation: 05/03/18 Time of Evaluation: 10:00 - Subjective Subjective: Patient seen and examined at bedside with Dr. Ordoñez. Reports moderate back pain /soreness, controlled with medication. Right [place] drain in place with 10 cc sero- sangunous fluid. Denies chest pain, SOB or headaches. Tolerating PO diet. Objective - Vital Signs/Intake and Output Vital Signs (last 24 hours): Temp Pulse Resp BP Pulse Ox 98.3 F 80 20 99/62 L 94 L 05/03/18 16:05 05/03/18 16:05 05/03/18 16:05 05/03/18 16:05 05/03/18 16:05 - Medications Medications: Current Medications Acetaminophen (Tylenol 325mg Tab) 650 mg PO Q4 PRN PRN Reason: Fever 101 degrees fahrenheit Alprazolam (Xanax) 0.125 mg PO HS PRN PRN Reason: Anxiety Stop: 05/08/18 14:45 Last Admin: 05/03/18 00:32 Dose: 0.125 mg Docusate Sodium (Colace) 100 mg PO BID [facility] Last Admin: 05/03/18 16:12 Dose: 100 mg Gabapentin (Neurontin) 100 mg PO HS [facility] Last Admin: 05/02/18 21:52 Dose: 100 mg Glipizide (Glucotrol Xl) 5 mg PO BRK [facility] Last Admin: 05/03/18 12:53 Dose: 5 mg Lactated Ringer's (Lactated Ringer's) 1,000 mls @ 125 mls/hr IV .Q8H [facility] Last Admin: 05/03/18 00:33 Dose: 125 mls/hr Insulin Human Regular (Humulin R) 0 units SC ACHS [facility] PRN Reason: Protocol Last Admin: 05/03/18 16:13 Dose: 1 unit Losartan Potassium (Cozaar) 50 mg PO DAILY [facility] Last Admin: 05/03/18 10:13 Dose: 50 mg Metformin HCl (Glucophage) 500 mg PO BIDWM [facility] Last Admin: 05/03/18 16:12 Dose: 500 mg Metoprolol Succinate (Toprol Xl) 50 mg PO DAILY [facility] Last Admin: 05/03/18 10:15 Dose: 50 mg Morphine Sulfate (Morphine) 2 mg IVP Q4 PRN PRN Reason: Pain, severe (8-10) Last Admin: 05/03/18 03:39 Dose: 2 mg Ondansetron HCl (Zofran Inj) 4 mg IVP ONCE PRN PRN Reason: Nausea/Vomiting Last Admin: 05/02/18 13:08 Dose: 4 mg Ondansetron HCl (Zofran Inj) 4 mg IVP Q6 PRN PRN Reason: Nausea/Vomiting Oxycodone/Acetaminophen (Percocet 5/325 Mg Tab) 1 tab PO Q6 PRN PRN Reason: Pain, severe (8-10) Stop: 05/04/18 16:01 Last Admin: 05/03/18 13:01 Dose: 1 tab Oxycodone/Acetaminophen (Percocet 5/325 Mg Tab) 2 tab PO Q4 PRN PRN Reason: Pain, severe (8-10) Stop: 05/05/18 09:22 Sitagliptin Phosphate (Januvia) 100 mg PO DAILY [facility] Last Admin: 05/03/18 10:15 Dose: 100 mg Tamsulosin HCl (Flomax) 0.4 mg PO DAILY [facility] Last Admin: 05/03/18 10:14 Dose: 0.4 mg - Labs Labs: 05/03/18 05:30 05/03/18 05:30 PT 9.9 Seconds (9.8-13.1) 05/01/18 08:28 INR 0.9 (0.9-1.2) 05/01/18 08:28 APTT 28.2 Seconds (25.6-37.1) 05/01/18 08:28 - Constitutional Appears: No Acute Distress - Head Exam Head Exam: NORMAL INSPECTION - Eye Exam Eye Exam: EOMI - ENT Exam ENT Exam: Mucous Membranes Moist - Respiratory Exam Respiratory Exam: NORMAL BREATHING PATTERN - Cardiovascular Exam Cardiovascular Exam: REGULAR RHYTHM, +S1, +S2 - GI/Abdominal Exam GI & Abdominal Exam: Soft, Normal Bowel Sounds Additional comments: abdominal binder in place - Extremities Exam Extremities Exam: Full ROM. absent: Calf Tenderness, Pedal Edema - Back Exam Back Exam: tenderness (mild tenderness in lumbar area, dressing clean/dry/intact , right [place] drain in place with 10cc sero-sanguinous fluid) - Psychiatric Exam Psychiatric exam: Normal Affect, Normal Mood - Skin Skin Exam: Dry, Warm Assessment and Plan - Assessment and Plan (Free Text) Assessment: 87 yr old M POD# 1 s/p lumbar laminectomy L3-4 and L4-5 right with right [place] drain in place. Patient reports moderate back pain, controlled with medication Plan: -pain management -Neurosurgery on consult: Dr. Pablo, will follow recommendations -continue home medications -advance diet as tolerated -PT/OT
[2018-05-04] MEDS: Lactated Ringer's 1,000 ML IV SCH ×3 (01:45→16:37)
[2018-05-04 06:04] LABS: MEAN CELL VOLUME 93.8 fl (80.0-94.0); MEAN CORPUSCULAR HEMOGLOBIN 31.5 pg (27.0-31.0); MEAN CORPUSCULAR HGB CONC 33.6 g/dL (33.0-37.0); RBC 4.13 Mil/uL (4.40-5.90); RED CELL DISTRIBUTION WIDTH 12.9 % (11.5-14.5); WHITE BLOOD COUNT 8.4 K/uL (4.8-10.8)
[2018-05-04 06:39] LABS: CALCIUM 9.3 mg/dL (8.4-10.2)
--- NOTE | 2018-05-04 07:46 | CP.PCM.PN ---
Subjective - Date & Time of Evaluation Date of Evaluation: 05/04/18 Time of Evaluation: 07:45 - Subjective Subjective: Patient seen and examined at bedside with Dr. Ordoñez. Patient reports moderated back pain persists, controlled with medication. Denies chest pain, numbness or tingling of extremities, weakness. [place] drain was removed. Tolaerating PO diet. Reports sensation or retaining urine. Objective - Vital Signs/Intake and Output Vital Signs (last 24 hours): Temp Pulse Resp BP Pulse Ox 98.3 F 70 19 101/80 94 L 05/04/18 01:00 05/04/18 01:00 05/04/18 01:00 05/04/18 01:00 05/04/18 01:00 Intake and Output: 05/04/18 05/04/18 06:59 18:59 Output Total 20 Balance -20 - Medications Medications: Current Medications Acetaminophen (Tylenol 325mg Tab) 650 mg PO Q4 PRN PRN Reason: Fever 101 degrees fahrenheit Alprazolam (Xanax) 0.125 mg PO HS PRN PRN Reason: Anxiety Stop: 05/08/18 14:45 Last Admin: 05/03/18 00:32 Dose: 0.125 mg Docusate Sodium (Colace) 100 mg PO BID [facility] Last Admin: 05/03/18 16:12 Dose: 100 mg Gabapentin (Neurontin) 100 mg PO HS [facility] Last Admin: 05/03/18 22:55 Dose: 100 mg Glipizide (Glucotrol Xl) 5 mg PO BRK [facility] Last Admin: 05/03/18 12:53 Dose: 5 mg Lactated Ringer's (Lactated Ringer's) 1,000 mls @ 125 mls/hr IV .Q8H [facility] Last Admin: 05/04/18 01:45 Dose: Not Given Insulin Human Regular (Humulin R) 0 units SC ACHS [facility] PRN Reason: Protocol Last Admin: 05/03/18 22:14 Dose: Not Given Losartan Potassium (Cozaar) 50 mg PO DAILY [facility] Last Admin: 05/03/18 10:13 Dose: 50 mg Metformin HCl (Glucophage) 500 mg PO BIDWM [facility] Last Admin: 05/03/18 16:12 Dose: 500 mg Metoprolol Succinate (Toprol Xl) 50 mg PO DAILY [facility] Last Admin: 05/03/18 10:15 Dose: 50 mg Morphine Sulfate (Morphine) 2 mg IVP Q4 PRN PRN Reason: Pain, severe (8-10) Last Admin: 05/03/18 03:39 Dose: 2 mg Ondansetron HCl (Zofran Inj) 4 mg IVP ONCE PRN PRN Reason: Nausea/Vomiting Last Admin: 05/02/18 13:08 Dose: 4 mg Ondansetron HCl (Zofran Inj) 4 mg IVP Q6 PRN PRN Reason: Nausea/Vomiting Oxycodone/Acetaminophen (Percocet 5/325 Mg Tab) 1 tab PO Q6 PRN PRN Reason: Pain, severe (8-10) Stop: 05/04/18 16:01 Last Admin: 05/03/18 13:01 Dose: 1 tab Oxycodone/Acetaminophen (Percocet 5/325 Mg Tab) 2 tab PO Q4 PRN PRN Reason: Pain, severe (8-10) Stop: 05/05/18 09:22 Sitagliptin Phosphate (Januvia) 100 mg PO DAILY [facility] Last Admin: 05/03/18 10:15 Dose: 100 mg Tamsulosin HCl (Flomax) 0.4 mg PO DAILY [facility] Last Admin: 05/03/18 10:14 Dose: 0.4 mg - Labs Labs: 05/04/18 05:40 05/04/18 05:40 PT 9.9 Seconds (9.8-13.1) 05/01/18 08:28 INR 0.9 (0.9-1.2) 05/01/18 08:28 APTT 28.2 Seconds (25.6-37.1) 05/01/18 08:28 - Constitutional Appears: No Acute Distress - Head Exam Head Exam: ATRAUMATIC, NORMOCEPHALIC - Eye Exam Eye Exam: EOMI - ENT Exam ENT Exam: Mucous Membranes Moist - Neck Exam Neck Exam: Full ROM - Respiratory Exam Respiratory Exam: NORMAL BREATHING PATTERN - Cardiovascular Exam Cardiovascular Exam: REGULAR RHYTHM - GI/Abdominal Exam GI & Abdominal Exam: Normal Bowel Sounds - Extremities Exam Extremities Exam: Full ROM. absent: Calf Tenderness, Pedal Edema - Neurological Exam Neurological Exam: Alert, Awake, Oriented x3 - Psychiatric Exam Psychiatric exam: Normal Affect, Normal Mood - Skin Skin Exam: Dry, Normal Color, Warm Assessment and Plan - Assessment and Plan (Free Text) Assessment: 87 yr old M POD# 2 s/p lumbar laminectomy L3-4 and L4-5, [place] drain removed. Patient reports moderate back pain, controlled with medication. Has some urine retention. Plan: -leave grimes catheter in place, consider nephrology consult -monitor I&O's -pain management -Neurosurgery on consult: Dr. Pablo, will follow recommendations -continue home medications -advance diet as tolerated -PT/OT
[2018-05-04] MEDS: Insulin Regular 100 units/ml SC SCH ×4 (08:54→22:05)
[2018-05-04] MEDS: GlipiZIDE 5 mg SR Tab PO SCH (08:54)
[2018-05-04] MEDS: Metoprolol Succinate 50 mg XL Tab PO SCH (08:54)
--- NOTE | 2018-05-04 10:31 | CP.PCM.PN ---
Subjective - Date & Time of Evaluation Date of Evaluation: 05/04/18 Time of Evaluation: 10:29 - Subjective Subjective: Patient states he has a lot of pain in his back. Denies CP/SOB/numbness/ tingling. Objective - Vital Signs/Intake and Output Vital Signs (last 24 hours): Temp Pulse Resp BP Pulse Ox 98.3 F 70 19 101/80 94 L 05/04/18 01:00 05/04/18 08:54 05/04/18 01:00 05/04/18 08:54 05/04/18 01:00 Intake and Output: 05/04/18 05/04/18 06:59 18:59 Output Total 20 Balance -20 - Medications Medications: Current Medications Acetaminophen (Tylenol 325mg Tab) 650 mg PO Q4 PRN PRN Reason: Fever 101 degrees fahrenheit Alprazolam (Xanax) 0.125 mg PO HS PRN PRN Reason: Anxiety Stop: 05/08/18 14:45 Last Admin: 05/03/18 00:32 Dose: 0.125 mg Docusate Sodium (Colace) 100 mg PO BID [facility] Last Admin: 05/04/18 08:53 Dose: 100 mg Gabapentin (Neurontin) 100 mg PO HS [facility] Last Admin: 05/03/18 22:55 Dose: 100 mg Glipizide (Glucotrol Xl) 5 mg PO BRK [facility] Last Admin: 05/04/18 08:54 Dose: 5 mg Lactated Ringer's (Lactated Ringer's) 1,000 mls @ 125 mls/hr IV .Q8H [facility] Last Admin: 05/04/18 01:45 Dose: Not Given Insulin Human Regular (Humulin R) 0 units SC ACHS [facility] PRN Reason: Protocol Last Admin: 05/04/18 08:54 Dose: Not Given Losartan Potassium (Cozaar) 50 mg PO DAILY [facility] Last Admin: 05/04/18 08:53 Dose: 50 mg Metformin HCl (Glucophage) 500 mg PO BIDWM [facility] Last Admin: 05/04/18 08:53 Dose: 500 mg Metoprolol Succinate (Toprol Xl) 50 mg PO DAILY [facility] Last Admin: 05/04/18 08:54 Dose: 50 mg Morphine Sulfate (Morphine) 2 mg IVP Q4 PRN PRN Reason: Pain, severe (8-10) Last Admin: 05/03/18 03:39 Dose: 2 mg Ondansetron HCl (Zofran Inj) 4 mg IVP ONCE PRN PRN Reason: Nausea/Vomiting Last Admin: 05/02/18 13:08 Dose: 4 mg Ondansetron HCl (Zofran Inj) 4 mg IVP Q6 PRN PRN Reason: Nausea/Vomiting Oxycodone/Acetaminophen (Percocet 5/325 Mg Tab) 1 tab PO Q6 PRN PRN Reason: Pain, severe (8-10) Stop: 05/04/18 16:01 Last Admin: 05/03/18 13:01 Dose: 1 tab Oxycodone/Acetaminophen (Percocet 5/325 Mg Tab) 2 tab PO Q4 PRN PRN Reason: Pain, severe (8-10) Stop: 05/05/18 09:22 Sitagliptin Phosphate (Januvia) 100 mg PO DAILY [facility] Last Admin: 05/03/18 10:15 Dose: 100 mg Tamsulosin HCl (Flomax) 0.4 mg PO DAILY [facility] Last Admin: 05/04/18 08:53 Dose: 0.4 mg - Labs Labs: 05/04/18 05:40 05/04/18 05:40 PT 9.9 Seconds (9.8-13.1) 05/01/18 08:28 INR 0.9 (0.9-1.2) 05/01/18 08:28 APTT 28.2 Seconds (25.6-37.1) 05/01/18 08:28 - Back Exam Additional comments: [place] 20-20-5, removed. Dressing small amount serosang drainage noted, incision intact, no erythema. Sterile dressing applied. +ROM ankle/toes/knee, walker ambulation with PT without obvious distress, sensation intact BLE, calves soft NT neg homans Assessment and Plan (1) Lumbar spondylosis Assessment & Plan: POD#2 L3-L5 fusion stable for d/c cont PT/OT f/u Dr. Pablo 2 weeks call for appt dressing change prn d/w Dr. Pablo, agrees with above Status: Acute
[2018-05-04 16:12] LABS: URINE BACTERIA RARE (<OCC); URINE BILIRUBIN NEGATIVE (NEGATIVE); URINE BLOOD MODERATE (NEGATIVE); URINE CLARITY SLIGHTY-CLOUDY (Clear); URINE COLOR YELLOW (YELLOW); URINE GLUCOSE (UA) NEG (Normal); URINE LEUKOCYTE ESTERASE NEG Leu/uL (Negative); URINE PROTEIN NEGATIVE (NEGATIVE); URINE UROBILINOGEN 0.2-1.0 mg/dL (0.2-1.0)
[2018-05-04] MEDS ORDERED: Ciprofloxacin 400mg/200ml D5W 400 MG/200 ML BAG IVPB STA (18:20)
[2018-05-05] MEDS: Benzocaine/Menthol (Cepacol) Lozenge PO PRN ×2 (01:18→16:57)
[2018-05-05] MEDS: Lactated Ringer's 1,000 ML IV SCH ×5 (01:45→20:00)
[2018-05-05] MEDS: Insulin Regular 100 units/ml SC SCH ×3 (07:30→16:50)
[2018-05-05] MEDS: Ciprofloxacin 400mg/200ml D5W 400 MG/200 ML BAG IVPB SCH ×2 (11:16→21:30)
[2018-05-05] MEDS: GlipiZIDE 5 mg SR Tab PO SCH (11:18)
[2018-05-05] MEDS: Metoprolol Succinate 50 mg XL Tab PO SCH (11:20)
[2018-05-05] MEDS: Benzocaine/Menthol (Cepacol) Lozenge PO SCH (23:58)
[2018-05-06] MEDS: Lactated Ringer's 1,000 ML IV SCH ×4 (01:45→08:46)
[2018-05-06] MEDS: Insulin Regular 100 units/ml SC SCH ×5 (06:54→23:07)
[2018-05-06 07:21] LABS: HEMOGLOBIN 11.9 g/dL (12.0-18.0); MEAN CELL VOLUME 93.7 fl (80.0-94.0); MEAN CORPUSCULAR HEMOGLOBIN 31.5 pg (27.0-31.0); MEAN CORPUSCULAR HGB CONC 33.6 g/dL (33.0-37.0); RBC 3.79 Mil/uL (4.40-5.90); RED CELL DISTRIBUTION WIDTH 12.8 % (11.5-14.5); WHITE BLOOD COUNT 6.8 K/uL (4.8-10.8)
[2018-05-06 08:04] LABS: ALB/GLOB RATIO 1.1 (1.0-2.1); ALBUMIN 3.3 g/dL (3.5-5.0); ALT/SGPT 24 U/L (21-72); AST/SGOT 25 U/L (17-59); BLOOD UREA NITROGEN 19 mg/dl (9-20); CALCIUM 9.6 mg/dL (8.4-10.2); GFR AFRICAN-AMERICAN > 60; GFR NON-AFRICAN AMERICAN > 60
[2018-05-06] MEDS: Benzocaine/Menthol (Cepacol) Lozenge PO SCH ×2 (08:33→12:30)
[2018-05-06] MEDS: Ciprofloxacin 400mg/200ml D5W 400 MG/200 ML BAG IVPB SCH ×2 (08:34→21:37)
[2018-05-06] MEDS: GlipiZIDE 5 mg SR Tab PO SCH (08:36)
[2018-05-06] MEDS: Metoprolol Succinate 50 mg XL Tab PO SCH (08:37)
[2018-05-06] MEDS ORDERED: Benzocaine/Menthol (Cepacol) Lozenge PO PRN (13:26)
--- NOTE | 2018-05-06 22:55 | CP.PCM.PN ---
Subjective - Date & Time of Evaluation Date of Evaluation: 05/05/18 Time of Evaluation: 09:30 - Subjective Subjective: Patient remains stable Has issues with urinary retention Has no fever Ambulating well Has minimal pain on op site. Objective - Vital Signs/Intake and Output Vital Signs (last 24 hours): Temp Pulse Resp BP Pulse Ox 98.2 F 72 18 129/67 96 05/06/18 16:37 05/06/18 16:37 05/06/18 16:37 05/06/18 16:37 05/06/18 16:37 Intake and Output: 05/06/18 05/07/18 18:59 06:59 Output Total 1500 Balance -1500 - Medications Medications: Current Medications Acetaminophen (Tylenol 325mg Tab) 650 mg PO Q4 PRN PRN Reason: Fever 101 degrees fahrenheit Alprazolam (Xanax) 0.125 mg PO HS PRN PRN Reason: Anxiety Stop: 05/08/18 14:45 Last Admin: 05/03/18 00:32 Dose: 0.125 mg Benzocaine/Menthol (Cepacol Sore Throat) 1 annette PO TID PRN PRN Reason: Sore Throat Last Admin: 05/06/18 16:21 Dose: 1 annette Docusate Sodium (Colace) 100 mg PO BID [facility] Last Admin: 05/06/18 16:18 Dose: 100 mg Gabapentin (Neurontin) 100 mg PO HS [facility] Last Admin: 05/06/18 21:47 Dose: 100 mg Glipizide (Glucotrol Xl) 5 mg PO BRK [facility] Last Admin: 05/06/18 08:36 Dose: 5 mg Ciprofloxacin (Cipro 400mg/200ml Dsw) 400 mg in 200 mls @ 200 mls/hr IVPB Q12 [facility] PRN Reason: Protocol Last Admin: 05/06/18 21:37 Dose: 200 mls/hr Insulin Human Regular (Humulin R) 0 units SC ACHS [facility] PRN Reason: Protocol Last Admin: 05/06/18 16:06 Dose: Not Given Losartan Potassium (Cozaar) 50 mg PO DAILY [facility] Last Admin: 05/06/18 08:36 Dose: 50 mg Metformin HCl (Glucophage) 500 mg PO BIDWM [facility] Last Admin: 05/06/18 16:19 Dose: 500 mg Metoprolol Succinate (Toprol Xl) 50 mg PO DAILY [facility] Last Admin: 05/06/18 08:37 Dose: 50 mg Ondansetron HCl (Zofran Inj) 4 mg IVP ONCE PRN PRN Reason: Nausea/Vomiting Last Admin: 05/02/18 13:08 Dose: 4 mg Ondansetron HCl (Zofran Inj) 4 mg IVP Q6 PRN PRN Reason: Nausea/Vomiting Sitagliptin Phosphate (Januvia) 100 mg PO DAILY [facility] Last Admin: 05/06/18 08:37 Dose: 100 mg Tamsulosin HCl (Flomax) 0.4 mg PO Q12 [facility] Last Admin: 05/06/18 21:38 Dose: 0.4 mg Tramadol HCl (Ultram) 50 mg PO TID PRN PRN Reason: Pain, severe (8-10) - Labs Labs: 05/06/18 05:30 05/06/18 05:30 PT 9.9 Seconds (9.8-13.1) 05/01/18 08:28 INR 0.9 (0.9-1.2) 05/01/18 08:28 APTT 28.2 Seconds (25.6-37.1) 05/01/18 08:28
--- NOTE | 2018-05-06 22:56 | CP.PCM.PN ---
Subjective - Date & Time of Evaluation Date of Evaluation: 05/06/18 Time of Evaluation: 12:50 - Subjective Subjective: patient is doing well Still on grimes Satrted on flomax has minimal pain Objective - Vital Signs/Intake and Output Vital Signs (last 24 hours): Temp Pulse Resp BP Pulse Ox 98.2 F 72 18 129/67 96 05/06/18 16:37 05/06/18 16:37 05/06/18 16:37 05/06/18 16:37 05/06/18 16:37 Intake and Output: 05/06/18 05/07/18 18:59 06:59 Output Total 1500 Balance -1500 - Medications Medications: Current Medications Acetaminophen (Tylenol 325mg Tab) 650 mg PO Q4 PRN PRN Reason: Fever 101 degrees fahrenheit Alprazolam (Xanax) 0.125 mg PO HS PRN PRN Reason: Anxiety Stop: 05/08/18 14:45 Last Admin: 05/03/18 00:32 Dose: 0.125 mg Benzocaine/Menthol (Cepacol Sore Throat) 1 annette PO TID PRN PRN Reason: Sore Throat Last Admin: 05/06/18 16:21 Dose: 1 annette Docusate Sodium (Colace) 100 mg PO BID [facility] Last Admin: 05/06/18 16:18 Dose: 100 mg Gabapentin (Neurontin) 100 mg PO HS [facility] Last Admin: 05/06/18 21:47 Dose: 100 mg Glipizide (Glucotrol Xl) 5 mg PO BRK [facility] Last Admin: 05/06/18 08:36 Dose: 5 mg Ciprofloxacin (Cipro 400mg/200ml Dsw) 400 mg in 200 mls @ 200 mls/hr IVPB Q12 [facility] PRN Reason: Protocol Last Admin: 05/06/18 21:37 Dose: 200 mls/hr Insulin Human Regular (Humulin R) 0 units SC ACHS [facility] PRN Reason: Protocol Last Admin: 05/06/18 16:06 Dose: Not Given Losartan Potassium (Cozaar) 50 mg PO DAILY [facility] Last Admin: 05/06/18 08:36 Dose: 50 mg Metformin HCl (Glucophage) 500 mg PO BIDWM [facility] Last Admin: 05/06/18 16:19 Dose: 500 mg Metoprolol Succinate (Toprol Xl) 50 mg PO DAILY [facility] Last Admin: 05/06/18 08:37 Dose: 50 mg Ondansetron HCl (Zofran Inj) 4 mg IVP ONCE PRN PRN Reason: Nausea/Vomiting Last Admin: 05/02/18 13:08 Dose: 4 mg Ondansetron HCl (Zofran Inj) 4 mg IVP Q6 PRN PRN Reason: Nausea/Vomiting Sitagliptin Phosphate (Januvia) 100 mg PO DAILY [facility] Last Admin: 05/06/18 08:37 Dose: 100 mg Tamsulosin HCl (Flomax) 0.4 mg PO Q12 [facility] Last Admin: 05/06/18 21:38 Dose: 0.4 mg Tramadol HCl (Ultram) 50 mg PO TID PRN PRN Reason: Pain, severe (8-10) - Labs Labs: 05/06/18 05:30 05/06/18 05:30 PT 9.9 Seconds (9.8-13.1) 05/01/18 08:28 INR 0.9 (0.9-1.2) 05/01/18 08:28 APTT 28.2 Seconds (25.6-37.1) 05/01/18 08:28
[2018-05-07] MEDS: Ciprofloxacin 400mg/200ml D5W 400 MG/200 ML BAG IVPB SCH ×2 (08:14→20:56)
[2018-05-07] MEDS: GlipiZIDE 5 mg SR Tab PO SCH (08:15)
[2018-05-07] MEDS: Metoprolol Succinate 50 mg XL Tab PO SCH (08:16)
[2018-05-07] MEDS: Insulin Regular 100 units/ml SC SCH ×4 (08:17→22:08)
--- NOTE | 2018-05-07 08:36 | CP.PCM.PN ---
Subjective - Date & Time of Evaluation Date of Evaluation: 05/07/18 Time of Evaluation: 07:30 - Subjective Subjective: Patient seen and examined at bedside comfortable. Pain well controlled. Stay extended due to urinary retention which has resolved. No other complaints. Objective - Vital Signs/Intake and Output Vital Signs (last 24 hours): Temp Pulse Resp BP Pulse Ox 97.9 F 65 20 177/82 H 95 05/07/18 08:03 05/07/18 08:03 05/07/18 08:03 05/07/18 08:03 05/07/18 08:03 Intake and Output: 05/07/18 05/07/18 06:59 18:59 Intake Total 150 Output Total 1500 Balance -1350 - Medications Medications: Current Medications Acetaminophen (Tylenol 325mg Tab) 650 mg PO Q4 PRN PRN Reason: Fever 101 degrees fahrenheit Alprazolam (Xanax) 0.125 mg PO HS PRN PRN Reason: Anxiety Stop: 05/08/18 14:45 Last Admin: 05/03/18 00:32 Dose: 0.125 mg Benzocaine/Menthol (Cepacol Sore Throat) 1 annette PO TID PRN PRN Reason: Sore Throat Last Admin: 05/06/18 16:21 Dose: 1 annette Docusate Sodium (Colace) 100 mg PO BID [facility] Last Admin: 05/07/18 08:16 Dose: 100 mg Gabapentin (Neurontin) 100 mg PO HS [facility] Last Admin: 05/06/18 21:47 Dose: 100 mg Glipizide (Glucotrol Xl) 5 mg PO BRK [facility] Last Admin: 05/07/18 08:15 Dose: 5 mg Ciprofloxacin (Cipro 400mg/200ml Dsw) 400 mg in 200 mls @ 200 mls/hr IVPB Q12 [facility] PRN Reason: Protocol Last Admin: 05/07/18 08:14 Dose: 200 mls/hr Insulin Human Regular (Humulin R) 0 units SC ACHS [facility] PRN Reason: Protocol Last Admin: 05/07/18 08:17 Dose: Not Given Losartan Potassium (Cozaar) 50 mg PO DAILY [facility] Last Admin: 05/07/18 08:16 Dose: 50 mg Metformin HCl (Glucophage) 500 mg PO BIDWM [facility] Last Admin: 07/02/18 08:15 Dose: 500 mg Metoprolol Succinate (Toprol Xl) 50 mg PO DAILY [facility] Last Admin: 05/07/18 08:16 Dose: 50 mg Ondansetron HCl (Zofran Inj) 4 mg IVP ONCE PRN PRN Reason: Nausea/Vomiting Last Admin: 05/02/18 13:08 Dose: 4 mg Ondansetron HCl (Zofran Inj) 4 mg IVP Q6 PRN PRN Reason: Nausea/Vomiting Sitagliptin Phosphate (Januvia) 100 mg PO DAILY [facility] Last Admin: 05/07/18 08:15 Dose: 100 mg Tamsulosin HCl (Flomax) 0.4 mg PO Q12 [facility] Last Admin: 05/07/18 08:15 Dose: 0.4 mg Tramadol HCl (Ultram) 50 mg PO TID PRN PRN Reason: Pain, severe (8-10) - Labs Labs: 05/06/18 05:30 05/06/18 05:30 PT 9.9 Seconds (9.8-13.1) 05/01/18 08:28 INR 0.9 (0.9-1.2) 05/01/18 08:28 APTT 28.2 Seconds (25.6-37.1) 05/01/18 08:28 - Extremities Exam Additional comments: Lumbar: Dressings intact with mild bloody drainage from Drain site, dressings removed revealing wound CDI sensation improved SP/DP/TN motor intact EHL/FHL/TA/G pedal pulses intact comps soft/NT Assessment and Plan (1) Lumbar spondylosis Assessment & Plan: POD#5 s/p L3-L5 laminotomy and posterior fusion, resolved urinary retention -dressings changed this AM -PT/OT WBAT -ABD binder -neurosurgically stable for discharge today -f/u in office next monday, call for appt -above d/w Dr. Pablo in agreement Status: Acute
--- NOTE | 2018-05-07 10:48 | CP.PCM.PN ---
Subjective - Date & Time of Evaluation Date of Evaluation: 05/07/18 Time of Evaluation: 10:47 - Subjective Subjective: Patient feels a lot better Martinez cath was removed today. Objective - Vital Signs/Intake and Output Vital Signs (last 24 hours): Temp Pulse Resp BP Pulse Ox 97.9 F 65 20 177/82 H 95 05/07/18 08:03 05/07/18 08:03 05/07/18 08:03 05/07/18 08:03 05/07/18 08:03 Intake and Output: 05/07/18 05/07/18 06:59 18:59 Intake Total 150 Output Total 1500 Balance -1350 - Medications Medications: Current Medications Acetaminophen (Tylenol 325mg Tab) 650 mg PO Q4 PRN PRN Reason: Fever 101 degrees fahrenheit Alprazolam (Xanax) 0.125 mg PO HS PRN PRN Reason: Anxiety Stop: 05/08/18 14:45 Last Admin: 05/03/18 00:32 Dose: 0.125 mg Benzocaine/Menthol (Cepacol Sore Throat) 1 annette PO TID PRN PRN Reason: Sore Throat Last Admin: 05/06/18 16:21 Dose: 1 annette Docusate Sodium (Colace) 100 mg PO BID [facility] Last Admin: 05/07/18 08:16 Dose: 100 mg Gabapentin (Neurontin) 100 mg PO HS [facility] Last Admin: 05/06/18 21:47 Dose: 100 mg Glipizide (Glucotrol Xl) 5 mg PO BRK [facility] Last Admin: 05/07/18 08:15 Dose: 5 mg Ciprofloxacin (Cipro 400mg/200ml Dsw) 400 mg in 200 mls @ 200 mls/hr IVPB Q12 [facility] PRN Reason: Protocol Last Admin: 05/07/18 08:14 Dose: 200 mls/hr Insulin Human Regular (Humulin R) 0 units SC ACHS [facility] PRN Reason: Protocol Last Admin: 05/07/18 08:17 Dose: Not Given Losartan Potassium (Cozaar) 50 mg PO DAILY [facility] Last Admin: 05/07/18 08:16 Dose: 50 mg Metformin HCl (Glucophage) 500 mg PO BIDWM [facility] Last Admin: 05/07/18 08:15 Dose: 500 mg Metoprolol Succinate (Toprol Xl) 50 mg PO DAILY [facility] Last Admin: 05/07/18 08:16 Dose: 50 mg Ondansetron HCl (Zofran Inj) 4 mg IVP ONCE PRN PRN Reason: Nausea/Vomiting Last Admin: 05/02/18 13:08 Dose: 4 mg Ondansetron HCl (Zofran Inj) 4 mg IVP Q6 PRN PRN Reason: Nausea/Vomiting Sitagliptin Phosphate (Januvia) 100 mg PO DAILY [facility] Last Admin: 05/07/18 08:15 Dose: 100 mg Tamsulosin HCl (Flomax) 0.4 mg PO Q12 [facility] Last Admin: 05/07/18 08:15 Dose: 0.4 mg Tramadol HCl (Ultram) 50 mg PO TID PRN PRN Reason: Pain, severe (8-10) - Labs Labs: 05/06/18 05:30 05/06/18 05:30 PT 9.9 Seconds (9.8-13.1) 05/01/18 08:28 INR 0.9 (0.9-1.2) 05/01/18 08:28 APTT 28.2 Seconds (25.6-37.1) 05/01/18 08:28
[2018-05-08] MEDS: Ciprofloxacin 400mg/200ml D5W 400 MG/200 ML BAG IVPB SCH ×2 (08:20→21:37)
[2018-05-08] MEDS: GlipiZIDE 5 mg SR Tab PO SCH (08:22)
[2018-05-08] MEDS: Insulin Regular 100 units/ml SC SCH ×4 (08:23→22:38)
[2018-05-08] MEDS: Metoprolol Succinate 50 mg XL Tab PO SCH (08:24)
[2018-05-08] MEDS ORDERED: Chlorhexidine Gluconate 1 APPL/PKT TP ONE (12:59)
[2018-05-09] MEDS: Insulin Regular 100 units/ml SC SCH ×2 (06:59→11:42)
[2018-05-09 08:17] VITALS: BP 123/60; PULSE 66; RESP 19; TEMP 97.5; O2SAT 96
[2018-05-09] MEDS: Ciprofloxacin 400mg/200ml D5W 400 MG/200 ML BAG IVPB SCH (08:48)
[2018-05-09] MEDS: GlipiZIDE 5 mg SR Tab PO SCH (08:49)
[2018-05-09] MEDS: Metoprolol Succinate 50 mg XL Tab PO SCH (08:50)
--- NOTE | 2018-05-09 11:04 | CP.PCM.PN ---
Subjective - Date & Time of Evaluation Date of Evaluation: 05/08/18 Time of Evaluation: 10:00 - Subjective Subjective: Patient continues to have urinary retention Currently on grimes Urology is aware. Objective - Vital Signs/Intake and Output Vital Signs (last 24 hours): Temp Pulse Resp BP Pulse Ox 97.5 F L 66 19 123/60 96 05/09/18 08:16 05/09/18 08:50 05/09/18 08:16 05/09/18 08:49 05/09/18 08:16 Intake and Output: 05/09/18 05/09/18 06:59 18:59 Intake Total 270 Output Total 1200 Balance -930 - Medications Medications: Current Medications Acetaminophen (Tylenol 325mg Tab) 650 mg PO Q4 PRN PRN Reason: Fever 101 degrees fahrenheit Benzocaine/Menthol (Cepacol Sore Throat) 1 annette PO TID PRN PRN Reason: Sore Throat Last Admin: 05/06/18 16:21 Dose: 1 annette Docusate Sodium (Colace) 100 mg PO BID [facility] Last Admin: 05/09/18 08:49 Dose: 100 mg Gabapentin (Neurontin) 100 mg PO HS [facility] Last Admin: 05/08/18 21:37 Dose: 100 mg Glipizide (Glucotrol Xl) 5 mg PO BRK [facility] Last Admin: 05/09/18 08:49 Dose: 5 mg Ciprofloxacin (Cipro 400mg/200ml Dsw) 400 mg in 200 mls @ 200 mls/hr IVPB Q12 [facility] PRN Reason: Protocol Last Admin: 05/09/18 08:48 Dose: 200 mls/hr Insulin Human Regular (Humulin R) 0 units SC ACHS [facility] PRN Reason: Protocol Last Admin: 05/09/18 06:59 Dose: 1 unit Losartan Potassium (Cozaar) 50 mg PO DAILY [facility] Last Admin: 05/09/18 08:49 Dose: 50 mg Metformin HCl (Glucophage) 500 mg PO BIDWM [facility] Last Admin: 05/09/18 08:49 Dose: 500 mg Metoprolol Succinate (Toprol Xl) 50 mg PO DAILY [facility] Last Admin: 05/09/18 08:50 Dose: 50 mg Ondansetron HCl (Zofran Inj) 4 mg IVP ONCE PRN PRN Reason: Nausea/Vomiting Last Admin: 05/02/18 13:08 Dose: 4 mg Ondansetron HCl (Zofran Inj) 4 mg IVP Q6 PRN PRN Reason: Nausea/Vomiting Sitagliptin Phosphate (Januvia) 100 mg PO DAILY [facility] Last Admin: 05/09/18 08:49 Dose: 100 mg Tamsulosin HCl (Flomax) 0.4 mg PO Q12 [facility] Last Admin: 05/09/18 08:49 Dose: 0.4 mg Tramadol HCl (Ultram) 50 mg PO TID PRN PRN Reason: Pain, severe (8-10) Last Admin: 05/07/18 14:08 Dose: 50 mg - Labs Labs: 05/06/18 05:30 05/06/18 05:30 PT 9.9 Seconds (9.8-13.1) 05/01/18 08:28 INR 0.9 (0.9-1.2) 05/01/18 08:28 APTT 28.2 Seconds (25.6-37.1) 05/01/18 08:28
--- NOTE | 2018-05-09 11:05 | CP.PCM.DIS ---
Provider - Provider Date of Admission: 05/01/18 08:11 Attending physician: Jayson Ordoñez MD Hospital Course - Lab Results Lab Results: Micro Results 05/04/18 15:41 Urine,Martinez Urine Culture - Final No Growth (<1,000 CFU/ML) Most Recent Lab Values WBC 6.8 K/uL (4.8-10.8) 05/06/18 05:30 RBC 3.79 Mil/uL (4.40-5.90) L 05/06/18 05:30 Hgb 11.9 g/dL (12.0-18.0) L 05/06/18 05:30 Hct 35.5 % (35.0-51.0) 05/06/18 05:30 MCV 93.7 fl (80.0-94.0) 05/06/18 05:30 MCH 31.5 pg (27.0-31.0) H 05/06/18 05:30 MCHC 33.6 g/dL (33.0-37.0) 05/06/18 05:30 RDW 12.8 % (11.5-14.5) 05/06/18 05:30 Plt Count 135 K/uL (130-400) 05/06/18 05:30 PT 9.9 Seconds (9.8-13.1) 05/01/18 08:28 INR 0.9 (0.9-1.2) 05/01/18 08:28 APTT 28.2 Seconds (25.6-37.1) 05/01/18 08:28 Sodium 142 mmol/l (132-148) 05/06/18 05:30 Potassium 4.1 MMOL/L (3.6-5.0) 05/06/18 05:30 Chloride 103 mmol/L (98-107) 05/06/18 05:30 Carbon Dioxide 29 mmol/L (22-30) 05/06/18 05:30 Anion Gap 14 (10-20) 05/06/18 05:30 BUN 19 mg/dl (9-20) 05/06/18 05:30 Creatinine 1.0 mg/dl (0.8-1.5) 05/06/18 05:30 Est GFR ( Amer) > 60 05/06/18 05:30 Est GFR (Non-Af Amer) > 60 05/06/18 05:30 POC Glucose (mg/dL) 156 mg/dL (65-110) H 05/09/18 05:45 Random Glucose 103 mg/dL (75-110) 05/06/18 05:30 Calcium 9.6 mg/dL (8.4-10.2) 05/06/18 05:30 Total Bilirubin 0.9 mg/dl (0.2-1.3) 05/06/18 05:30 AST 25 U/L (17-59) 05/06/18 05:30 ALT 24 U/L (21-72) 05/06/18 05:30 Alkaline Phosphatase 50 U/L (38-126) 05/06/18 05:30 Total Protein 6.3 G/DL (6.3-8.2) 05/06/18 05:30 Albumin 3.3 g/dL (3.5-5.0) L D 05/06/18 05:30 Globulin 3.0 gm/dL (2.2-3.9) 05/06/18 05:30 Albumin/Globulin Ratio 1.1 (1.0-2.1) 05/06/18 05:30 Urine Color Yellow (YELLOW) 05/04/18 15:41 Urine Clarity Slighty-cloudy (Clear) 05/04/18 15:41 Urine pH 5.0 (5.0-8.0) 05/04/18 15:41 Ur Specific [place] 1.016 (1.003-1.030) 05/04/18 15:41 Urine Protein Negative mg/dL (NEGATIVE) 05/04/18 15:41 Urine Glucose (UA) Neg mg/dL (Normal) 05/04/18 15:41 Urine Ketones Negative mg/dL (NEGATIVE) 05/04/18 15:41 Urine Blood Moderate (NEGATIVE) 05/04/18 15:41 Urine Nitrate Negative (NEGATIVE) 05/04/18 15:41 Urine Bilirubin Negative (NEGATIVE) 05/04/18 15:41 Urine Urobilinogen 0.2-1.0 mg/dL (0.2-1.0) 05/04/18 15:41 Ur Leukocyte Esterase Neg [place]/uL (Negative) 05/04/18 15:41 Urine RBC (Auto) 3 /hpf (0-3) 05/04/18 15:41 Urine Microscopic WBC 1 /hpf (0-5) 05/04/18 15:41 Urine Bacteria Rare (<OCC) 05/04/18 15:41 Blood Type O POSITIVE 05/01/18 08:28 Blood Type Confirm O POSITIVE 05/01/18 12:17 Antibody Screen Negative 05/01/18 08:28 BBK History Checked No verified bt 05/01/18 08:28 - Hospital Course Hospital Course: This is an 87 y/o male admitted for Lumbar laminectomy. Post op period was unremarkable till 2 days later started having recurrent urinary retention. Discharge Exam - Head Exam Head Exam: ATRAUMATIC, NORMOCEPHALIC Discharge Plan - Follow Up Plan Condition: FAIR Disposition: HOME/ ROUTINE Instructions: How to Care for Your Martinez Catheter, Male, Laminectomy (DC) Additional Instructions: follow up with primary MD 7-[address] Pablo in 2 weeks TURP with on Monday05/11/2017 Referrals: Akil Pablo MD [Staff Provider] - Eduardo Pappas MD [Family Provider] - Ramiro Gunter MD [Medical Doctor] -
== END 2018-05-09 14:14 | disposition home health service (06) | DRG 460 ==
LOC: H.ER 07:02 → H.ERHOLD 08:11 → H.MEDSURG1 09:06
PROVIDERS: ADMIT Family Medicine; ATTEND Family Medicine
PROC: 0SG10K1 Fusion of 2 or more Lumbar Vertebral Joints with Nonautologous Tissue Substitute, Posterior Approach, Posterior Column, Open Approach (ICD-10-PCS; principal; 2018-05-02 07:45)
DX: M47.816 Spondylosis without myelopathy or radiculopathy, lumbar region (principal); E11.65 Type 2 diabetes mellitus with hyperglycemia; I25.10 Atherosclerotic heart disease of native coronary artery without angina pectoris; G89.29 Other chronic pain; I10 Essential (primary) hypertension; N40.1 Benign prostatic hyperplasia with lower urinary tract symptoms; R33.8 Other retention of urine; M53.2X6 Spinal instabilities, lumbar region; M19.90 Unspecified osteoarthritis, unspecified site

== ENCOUNTER 2018-06-20 13:09 | Emergency (ER) | payer OTHER ==
[2018-06-20 13:09] VITALS: BMI 27.4
[2018-06-20 13:13] VITALS: BP 159/81; PULSE 98; RESP 20; TEMP 98.1; O2SAT 97
--- NOTE | 2018-06-20 13:23 | ED PDOC ---
HPI: Male Pain Time Seen by Provider: 06/20/18 13:14 Chief Complaint (Nursing): Male Genitourinary History Per: Patient Onset/Duration Of Symptoms: Days (2) Current Symptoms Are (Timing): Still Present Severity: Moderate Pain Scale Rating Of: 5 Quality Of Discomfort: Burning Associated Symptoms: Diarrhea, Urinary Symptoms. denies: Fever, Nausea, Vomiting Alleviating Factors: None Additional Complaint(s): Dysuria x 2 days. s/p catheter removal after back surgery on 06/14. Denies hematuria or fever. Denies back pain. Has also had diarrhea. denies vomiting. Past Medical History Vital Signs: Last Vital Signs Temp 98.1 F 06/20/18 13:12 Pulse 98 H 06/20/18 13:12 Resp 20 06/20/18 13:12 BP 159/81 H 06/20/18 13:12 Pulse Ox 97 06/20/18 13:12 - Medical History PMH: Arthritis, Benign Prostatic Hyperplasia, CAD (angioplasty), Diabetes, HTN Denies: Chronic Kidney Disease - Surgical History Surgical History: Back Surgery - Family History Family History: States: Unknown Family Hx - Immunization History Hx Tetanus Toxoid Vaccination: Yes Hx Influenza Vaccination: Yes Hx Pneumococcal Vaccination: Yes - Home Medications Home Medications: Ambulatory Orders Medication Instructions Recorded Acetaminophen with Codeine 1 tab PO Q8 PRN 06/20/18 [Tylenol with Codeine #3 Tablet] Cyclobenzaprine [Flexeril] 5 mg PO HS PRN 06/20/18 Escitalopram Oxalate [Lexapro] 5 mg PO DAILY 06/20/18 Finasteride [Proscar] 5 mg PO DAILY 06/20/18 Gabapentin [Neurontin] 100 mg PO DAILY 06/20/18 GlipiZIDE SR [Glucotrol XL] 5 mg PO DAILY 06/20/18 Insulin Detemir [Levemir] 5 unit SC HS 06/20/18 Loperamide [Loperamide HCl] 2 mg PO Q8 #10 cap 06/20/18 Losartan [Cozaar] 50 mg PO DAILY 06/20/18 Metoprolol Succinate XL [Toprol XL] 50 mg PO DAILY 06/20/18 SITagliptin [Januvia] 100 mg PO DAILY 06/20/18 Sulfamethoxazole/Trimethoprim 1 tab PO BID #20 tab 06/20/18 [Bactrim DS 800 mg-160 mg] Tamsulosin [Flomax] 0.4 mg PO Q12 06/20/18 metFORMIN [glucOPHAGE] 500 mg PO BID 06/20/18 traMADol [Ultram] 50 mg PO Q8 #10 tab 06/20/18 - Allergies Allergies/Adverse Reactions: Allergies Allergy/AdvReac Type Severity Reaction Status Date / Time No Known Allergies Allergy Verified 06/20/18 13:14 Review of Systems ROS Statement: Except As Marked, All Systems Reviewed And Found Negative Constitutional: Negative for: Fever Genitourinary Male: Positive for: Dysuria. Negative for: Hematuria Musculoskeletal: Negative for: Back Pain Physical Exam - Reviewed Nursing Documentation Reviewed: Yes Vital Signs Reviewed: Yes - Physical Exam Appears: Positive for: Non-toxic, Uncomfortable Head Exam: Positive for: ATRAUMATIC, NORMAL INSPECTION, NORMOCEPHALIC Skin: Positive for: Normal Color, Warm, DRY Eye Exam: Positive for: EOMI, Normal appearance, PERRL ENT: Positive for: Normal ENT Inspection Neck: Positive for: Normal, Painless ROM Cardiovascular/Chest: Positive for: Regular Rate, Rhythm Respiratory: Positive for: CNT, Normal Breath Sounds Gastrointestinal/Abdominal: Positive for: Soft, Distended (Suprapubic area) Back: Positive for: Normal Inspection. Negative for: L CVA Tenderness, R CVA Tenderness Extremity: Positive for: Normal ROM Neurologic/Psych: Positive for: Alert, Oriented - Laboratory Results Result Diagrams: 06/20/18 14:36 06/20/18 14:36 - ECG O2 Sat by Pulse Oximetry: 97 Disposition - Clinical Impression Clinical Impression: Urinary retention - Patient ED Disposition Is Patient to be Admitted: No Counseled Patient/Family Regarding: Studies Performed, Diagnosis, Need For Followup, Rx Given - Disposition Referrals: Magnolia Shepard MD [Medical Doctor] - Disposition: Routine/Home Disposition Time: 16:12 Condition: FAIR Prescriptions: Loperamide [Loperamide HCl] 2 mg PO Q8 #10 cap Sulfamethoxazole/Trimethoprim [Bactrim DS 800 mg-160 mg] 1 tab PO BID #20 tab traMADol [Ultram] 50 mg PO Q8 #10 tab Instructions: Urinary Retention Forms: [employer] ([place]er) Print Language: MALAY
[2018-06-20 14:45] LABS: BASO % 0.4 % (0.0-2.0); EOS # 0.2 K/uL (0.0-0.7); EOS % 1.7 % (0.0-4.0); HEMOGLOBIN 13.1 g/dL (12.0-18.0); LYMPH # 1.2 K/uL (1.0-4.3); MEAN CORPUSCULAR HEMOGLOBIN 31.8 pg (27.0-31.0); MEAN CORPUSCULAR HGB CONC 34.5 g/dL (33.0-37.0); MEAN PLATELET VOLUME 8.3 fl (7.2-11.7); MONO # 1.5 K/uL (0.0-0.8); MONO % 14.1 % (0.0-10.0); NEUT # 7.9 K/uL (1.8-7.0); NEUT % 72.8 % (50.0-75.0); NRBC % 0.1 % (0.0-0.0); RBC 4.13 Mil/uL (4.40-5.90); RED CELL DISTRIBUTION WIDTH 13.2 % (11.5-14.5); WHITE BLOOD COUNT 10.8 K/uL (4.8-10.8)
[2018-06-20 15:09] LABS: ALB/GLOB RATIO 1.2 (1.0-2.1); ALBUMIN 4.4 g/dL (3.5-5.0); ALT/SGPT 28 U/L (21-72); AST/SGOT 25 U/L (17-59); BLOOD UREA NITROGEN 27 mg/dl (9-20); CALCIUM 9.8 mg/dL (8.4-10.2); GFR AFRICAN-AMERICAN > 60; GFR NON-AFRICAN AMERICAN 52
== END 2018-06-20 19:00 | disposition home or self-care (01) ==
LOC: H.ER 13:09
DX: N39.0 Urinary tract infection, site not specified (principal); E11.9 Type 2 diabetes mellitus without complications; I10 Essential (primary) hypertension; I25.10 Atherosclerotic heart disease of native coronary artery without angina pectoris; Z79.4 Long term (current) use of insulin; R33.8 Other retention of urine; N40.1 Benign prostatic hyperplasia with lower urinary tract symptoms
CPT/HCPCS: 80053; 85025; 87040; 87086; 87181; 96374; 99284; J1885

== ENCOUNTER 2019-02-26 07:55 | Emergency (ER) | payer MEDICARE, OTHER ==
[2019-02-26 07:55] VITALS: BMI 25.8
[2019-02-26 08:03] VITALS: BP 161/76; PULSE 57; RESP 15; TEMP 97.9; O2SAT 97
--- NOTE | 2019-02-26 09:10 | ED PDOC ---
- ECG O2 Sat by Pulse Oximetry: 97 Disposition - Disposition
--- NOTE | 2019-02-26 09:19 | ED PDOC ---
HPI: Trauma/Fall - HPI Additional Complaint(s): 88 y/o M with hx of lumbar disc surgery & ligament tear in right knee is presenting with complaints of left shoulder, lower back, and right leg pain after sustaining two falls. As per patient, he fell twice within the past 2 weeks. He sustained the first fall while in his basement attempting to walk to the restroom. Second fall occurred while in the bathroom. He endorses getting out of the shower, and loosing his balance after feeling some pain in the rt knee. Patient's daughter reports recommendations were given by the patient's orthopedic surgeon for use of cane and walker, but patient refuses to ambulate with either. He denies any chest pain, shortness of breath, lightheadedness, dizziness prior to falling. He also denies any fever, chills, chest pain, shortness of breath, nausea, vomitting or abdominal pain. PMH: DMII, HTN, HLD, Anxiety, ligament tear in rt knee Meds: metformin 500mg BID, Xanax, Januvia 100mg QD, Losartan 50mg QD, levemir 5 units HS, Tamsulosin .14mg BID, metoprolol succinate xl 50mg PO, finasteride 5mg QD, flexeril 5 mg HS, Duexis, BID Allergies: tramadol Surghx: disc surgery- 02/2018, Transurethral resection of prostate 08/2018 Famhx: noncontributory Sochx: denies ROS: all points reviewed and are negative unless otherwise mentioned in HPI <Tejal Gustafson - Last Filed: 02/26/19 12:27> <Sae Saenz - Last Filed: 02/26/19 15:50> - HPI Time Seen by Provider: 02/26/19 08:25 Chief Complaint (Nursing): Trauma Supervising Attending Note - Supervising Attending Note The Documented history was done by the: Physician Project Development Engineer The documented physical exam was done by the: Physician Project Development Engineer The documented procedures were done by the: Physician Project Development Engineer - Attestation: I have personally seen and examined this patient.: Yes I have fully participated in the care of the patient.: Yes I have reviewed all pertinent clinical information, including history, physical exam and plan: Yes - Notes: Notes:: pt seen by myself. has had mecahnical slip and fall due to knee pain/chronic pain. pt at baseline, feels well at this time. ate tray of food ekg noted to be chronicaly sinus bradychardia instructed pt and pt famil ythat he needs to follow up as an outpatient <Sae Saenz Y - Last Filed: 02/26/19 15:50> Past Medical History Vital Signs: Last Vital Signs Temp 97.9 F 02/26/19 08:02 Pulse 57 L 02/26/19 08:02 Resp 15 02/26/19 08:02 BP 161/76 H 02/26/19 08:02 Pulse Ox 97 02/26/19 09:10 - Medical History PMH: Arthritis, Benign Prostatic Hyperplasia, CAD (angioplasty), Diabetes, HTN Denies: Chronic Kidney Disease - Surgical History Surgical History: Back Surgery - Family History Family History: States: Unknown Family Hx - Immunization History Hx Tetanus Toxoid Vaccination: Yes Hx Influenza Vaccination: Yes Hx Pneumococcal Vaccination: Yes <Tejal Gustafson - Last Filed: 02/26/19 12:27> Vital Signs: Last Vital Signs Temp 97.9 F 02/26/19 08:02 Pulse 57 L 02/26/19 08:02 Resp 15 02/26/19 08:02 BP 161/76 H 02/26/19 08:02 Pulse Ox 97 02/26/19 11:55 <Sae Saenz Y - Last Filed: 02/26/19 15:50> - Home Medications Home Medications: Ambulatory Orders Medication Instructions Recorded Cyclobenzaprine [Flexeril] 5 mg PO HS PRN 06/20/18 Escitalopram Oxalate [Lexapro] 5 mg PO DAILY 06/20/18 Finasteride [Proscar] 5 mg PO DAILY 06/20/18 Gabapentin [Neurontin] 100 mg PO DAILY 06/20/18 GlipiZIDE SR [Glucotrol XL] 5 mg PO DAILY 06/20/18 Insulin Detemir [Levemir] 5 unit SC HS 06/20/18 Losartan [Cozaar] 50 mg PO DAILY 06/20/18 Metoprolol Succinate XL [Toprol XL] 50 mg PO DAILY 06/20/18 SITagliptin [Januvia] 100 mg PO DAILY 06/20/18 Tamsulosin [Flomax] 0.4 mg PO Q12 06/20/18 Ibuprofen/Famotidine [Duexis 1 tab PO BID 07/02/18 800-26.6 mg Tablet] Docusate Sodium [Colace] 100 mg PO TID #42 capsule 08/13/18 Levofloxacin [Levaquin] 500 mg PO DAILY #7 tablet 08/13/18 metFORMIN [glucOPHAGE] 500 mg PO BID #28 tab 08/13/18 oxyCODONE/Acetaminophen [Percocet 1 ea PO Q4H PRN #20 tab 08/13/18 5/325 mg Tab] - Allergies Allergies/Adverse Reactions: Allergies Allergy/AdvReac Type Severity Reaction Status Date / Time tramadol AdvReac DIZZINESS Verified 02/26/19 08:30 Physical Exam - Physical Exam Appears: Positive for: Non-toxic, No Acute Distress Head Exam: Positive for: ATRAUMATIC, NORMAL INSPECTION Skin: Positive for: Dry. Negative for: Rash Eye Exam: Positive for: PERRL ENT: Positive for: Normal ENT Inspection. Negative for: Pharyngeal Erythema, Tonsillar Exudate Neck: Positive for: Painless ROM Cardiovascular/Chest: Positive for: Regular Rate, Rhythm. Negative for: Murmur Respiratory: Positive for: Normal Breath Sounds. Negative for: Wheezing, Respiratory Distress Gastrointestinal/Abdominal: Positive for: Bowel Sounds, Soft. Negative for: Tenderness, Guarding, Rebound Back: Positive for: Other (mid lower back tenderness;) Extremity: Positive for: Other (left shoulder- passive ROM intact b/l; pt is able to abduct arm 90 degrees; empty beer can test wnl; limited ROM in left shoulder compared to rt; right leg- pain elicited with palpation of lower thigh, palpation in popliteal area, anterior knee with some abrasions noted, and lower leg with minimal swelling noted; left leg: nontender with abrasion on knee) Lymphatic: Negative for: Adenopathy Neurological/Psych: Positive for: Awake, Alert, Other (weakness in rt leg compared to left; sensation to light touch intact in upper & lower extremities b/l) <Tejal Gustafson - Last Filed: 02/26/19 12:27> - ECG ECG Rhythm: Positive for: Sinus Bradycardia (Sinus bradycardia noted on EKG with previous episodes of bradycardia recorded in the past) O2 Sat by Pulse Oximetry: 97 - Radiology X-Ray: Read By Radiologist (Head CT-negative for any acute pathology; left shoulder, and right knee x-ray negative for any acute pathology ) <Tejal Gustafson - Last Filed: 02/26/19 12:27> - Progress ED Course And Treament: 12:15 Spoke to patient and who complains of pain to multiple places due to mechanical fall and he has chronic knee pain. X-ray of knee and shoulder are negative. On EKG, patient has sinus bradycardia with a rate of 52bpm Upon provider reevaluation patient is feeling better, is medically stable, and requires no further treatment in the ED at this time. Patient will be discharged home. <Sae Saenz Y - Last Filed: 02/26/19 15:50> Disposition Discussed With Dr.: Sae Saenz Comment: Pre-odonnell report for lumbar spine was negative. Discussed with patient and family the importance of using knee brace as recommended by Orthopedist. Also encouraged patient to utilize cane & walker when ambulating. Patient expressed understanding and is agreeable. - Disposition Disposition Time: 12:25 <Tejal Gustafson - Last Filed: 02/26/19 12:27> <Sae Saenz Y - Last Filed: 02/26/19 15:50> - Clinical Impression Clinical Impression: Lower back pain, Knee pain, right, Shoulder pain, left, Fall - Disposition Referrals: Jayson Ordoñez MD [Family Provider] - Condition: STABLE Additional Instructions: follow up with Dr Ordoñez in 1-2 days return to the ED with any worsening or concerning symptoms Instructions: Low Back Pain (DC), Chronic Knee Pain Forms: LUXA ([place]ican)
--- NOTE | 2019-02-26 10:46 | RAD ---
Date of service: 02/26/2019 PROCEDURE: Right Knee Radiographs. HISTORY: rt knee pain s/p fall COMPARISON: None. TECHNIQUE: 2 views obtained. FINDINGS: BONES: Normal. No fracture. JOINTS: Normal. No osteoarthritis. JOINT EFFUSION: None. OTHER FINDINGS: None. IMPRESSION: Normal radiographs of the right knee.
--- NOTE | 2019-02-26 10:47 | RAD ---
Date of service: 02/26/2019 PROCEDURE: Radiographs of the Left Shoulder HISTORY: left shoulder pain s/p fall COMPARISON: No prior. TECHNIQUE: 3 views obtained. FINDINGS: BONES: Normal. No fracture. JOINTS: Normal. Glenohumeral and acromioclavicular joints preserved. No osteoarthritis. SOFT TISSUES: Normal. OTHER FINDINGS: None. IMPRESSION: Normal radiographs of the left shoulder.
--- NOTE | 2019-02-26 11:25 | CT ---
Date of service: 02/26/2019 PROCEDURE: CT HEAD WITHOUT CONTRAST. HISTORY: s/p fall COMPARISON: 02/15/2018. TECHNIQUE: Axial computed tomography images were obtained through the head/brain without intravenous contrast. Supplemental Coronal and Sagittal projections created and reviewed. Radiation dose: Total exam DLP = 784.31 mGy-cm. This CT exam was performed using one or more of the following dose reduction techniques: Automated exposure control, adjustment of the mA and/or kV according to patient size, and/or use of iterative reconstruction technique. FINDINGS: HEMORRHAGE: No intracranial hemorrhage. BRAIN: No mass effect or edema. Age related senescent changes. VENTRICLES: Unremarkable. No hydrocephalus. CALVARIUM: Unremarkable. PARANASAL SINUSES: Unremarkable as visualized. No significant inflammatory changes. MASTOID AIR CELLS: Unremarkable as visualized. No inflammatory changes. OTHER FINDINGS: None. IMPRESSION: No acute intracranial abnormalities. No significant findings to account for the clinical presentation. No significant interval change compared to the prior examination(s).
--- NOTE | 2019-02-26 13:15 | RAD ---
Date of service: 02/26/2019 PROCEDURE: Radiographs of the Lumbar Spine. HISTORY: lower back pain COMPARISON: No prior. TECHNIQUE: 5 views obtained. FINDINGS: BONES: Normal alignment. No listhesis. No fracture. DISC SPACES: Unremarkable. OTHER FINDINGS: Calcified nonaneurysmal abdominal aorta. IMPRESSION: No acute findings related to/ accounting for the clinical presentation. Concordant results with the preliminary interpretation rendered by the emergency department physician procedure.
--- NOTE | 2019-02-26 18:43 | CARD ---
APPROVED REPORT Date of service: 02/26/2019 EKG Measurement Heart [id number] <Conclusion> Sinus bradycardia Otherwise normal ECG
== END 2019-02-26 12:25 | disposition home or self-care (01) ==
LOC: H.ER 07:55
DX: M54.5 Low back pain (principal); M25.561 Pain in right knee; M25.512 Pain in left shoulder; E11.9 Type 2 diabetes mellitus without complications; I10 Essential (primary) hypertension; N40.0 Benign prostatic hyperplasia without lower urinary tract symptoms; Z79.4 Long term (current) use of insulin; Z88.8 Allergy status to other drugs, medicaments and biological substances; Z79.899 Other long term (current) drug therapy